=== PATIENT | female | born 1965 | race African-American/Black ===

== ENCOUNTER 2018-02-15 07:52 | Inpatient (IN) | payer OTHER ==
[2018-02-15] MEDS ORDERED: THROMBIN (BOVINE) 5,000 UNIT VIAL TP ONE ×3 (14:39→17:09)
[2018-02-15] MEDS ORDERED: fentaNYL CITRATE 250 MCG/5 ML VIAL ONE (14:49)
[2018-02-15] MEDS ORDERED: PROPOFOL 20 ML ONE ×23 (14:49→18:49)
[2018-02-15] MEDS ORDERED: MIDAZOLAM HCL 2 MG/2 ML SINGLE DOSE VIAL ONE (14:50)
[2018-02-15] MEDS ORDERED: SUCCINYLCHOLINE CHLORIDE 200 MG/10 ML VIAL ONE (14:50)
[2018-02-15] MEDS ORDERED: ONDANSETRON 4 MG/2 ML VIAL ONE ×2 (14:51→20:49)
[2018-02-15] MEDS ORDERED: TRANEXAMIC ACID 1000 MG/10 ML VIAL ONE ×2 (14:51→16:35)
[2018-02-15] MEDS ORDERED: DEXAMETHASONE SOD PHOSPHATE 4 MG/1 ML VIAL ONE (14:51)
[2018-02-15] MEDS ORDERED: ceFAZolin SODIUM 1 GM VIAL ONE ×2 (14:51→19:29)
[2018-02-15] MEDS ORDERED: VANCOMYCIN 1,000 MG VIAL (RESTRICTED TO ID ONLY) ONE (14:51)
[2018-02-15] MEDS ORDERED: LIDOCAINE HCL/PF 2% SDV 5ML VIAL ONE (14:51)
[2018-02-15] MEDS ORDERED: SODIUM CHLORIDE 0.9% P/F 10 ML VIAL IJ ONE (14:55)
[2018-02-15] MEDS ORDERED: VANCOMYCIN 1,000 MG VIAL (RESTRICTED TO ID ONLY) IVPB ONE (15:00)
[2018-02-15] MEDS ORDERED: HEPARIN NA (PORCINE) 5,000 UNITS/ML 1ML VIAL ONE (15:23)
[2018-02-15] MEDS ORDERED: ceFAZolin SODIUM 1 GM VIAL IVPB ONE (15:52)
[2018-02-15] MEDS ORDERED: ROCURONIUM BROMIDE 50 MG/5 ML VIAL ONE (16:49)
[2018-02-15] MEDS ORDERED: NEOSTIGMINE METHYLSULFATE 0.5 MG/ML - 10 ML MDV ONE (17:21)
[2018-02-15] MEDS ORDERED: GLYCOPYRROLATE 0.2 MG/1 ML VIAL ONE (17:21)
[2018-02-15] MEDS ORDERED: HYDROmorphone *PCA* 10MG/50ML DISP.SYRIN PCA ONE (20:09)
--- NOTE | 2018-02-15 20:12 | OP ---
Operative Note - Note: Operative Date: 02/15/18 Pre-Operative Diagnosis: Lumbar spinal stenosis Operation: 1. L1-S1 laminectomies. 2. L1-2, L2-L3 SPO. 3. L1-S1 PISF Post-Operative Diagnosis: Same as Pre-op Surgeon: Danilo Claire Napkin Machine Operator: Ja Claire Anesthesiologist/TRANSMISSION ENGINEER: Eric Wills Anesthesia: General Estimated Blood Loss (mls): 800 Drains & Tubes with Location: 1 x superficial HemoVac Blood Volume Replaced (mls): 250 (Cell Saver) Fluid Volume Replaced (mls): 3,300 (Crystalloid) Operative Report Dictated: Yes
--- NOTE | 2018-02-15 20:19 | PN ---
Progress Note (short form) - Note Progress Note: 52F s/p L1-S1 laminectomies, L1-2, L2-L3 SPO, L1-S1 PISF POD #0. -Pain control: SKIP MINER BLASTING; per anaesthesia team. -Admit to ICU post-op. -DVT PPx: - Mechanical ONLY (SCD's, DELGADO's). -Incentive spirometry. -PT/OT/Rehab, OOB. -WBAT B/L LE. -f/u drain output. -NPO until flatus. -d/c Tucker catheter when ambulating. -Kayla-Op Antibiotics: Vancomycin, Ancef x 24 hours. -Care per medical hospitalist team. -Discharge planning. -Will follow. Danilo Claire MD (Orthopaedic Surgery).
[2018-02-15] MEDS ORDERED: ONDANSETRON 4 MG/2 ML VIAL IVPUSH PRN (20:20)
[2018-02-15] MEDS ORDERED: LACTATED RINGERS SOLUTION 1,000 ML IV SCH (20:30)
[2018-02-15] MEDS ORDERED: DEXAMETHASONE SOD PHOSPHATE 4 MG/1 ML VIAL IVPUSH PRN (20:46)
[2018-02-15] MEDS ORDERED: PROMETHAZINE HCL 25 MG/1 ML VIAL IVPB PRN (20:46)
[2018-02-15] MEDS: HYDROmorphone *PCA* 10MG/50ML DISP.SYRIN PCA SCH ×2 (21:13→23:39)
[2018-02-15] MEDS: ACETAMINOPHEN 1000 MG/100 ML VIAL (NON FORMULARY) IVPB SCH (21:27)
--- NOTE | 2018-02-15 21:39 | CONSULT ---
Consult Consult Specialty:: Pulm/CCM Reason for Consultation:: Spinal stenosis s/p laminectomy - History of Present Illness Chief Complaint: Surgical site pain History of Present Illness: 52 ni with PMHx DMII, depression, lumbar spinal stenosis today is s/p L1-S1 laminectomies, L1-L2, L2-L3 SPO, L1-S1 PISF. In the OR EBL 800cc, cell saver 200cc, IVF, 3.3L, UOP 600cc. She is transferred to ICU for post-op management. In the ICU BP 101/67, HR 85 O2 sat 96% on NC O2 2L. Hemovac drain with small amt bloody drainage. BAXTER. C/o 07/14 pain. MEDIA INTERN dilaudid in place. - History Source History Provided By: Medical Record - Past Medical History ...LMP Comment: 2009 Musculoskeletal: Yes: Chronic low back pain Endocrine: Yes: Diabetes Mellitus - Alcohol/Substance Use Hx Alcohol Use: No - Smoking History Smoking history: Never smoked Home Medications - Allergies Allergies/Adverse Reactions: Allergies Allergy/AdvReac Type Severity Reaction Status Date / Time No Known Allergies Allergy Verified 02/12/18 19:13 - Home Medications Home Medications: Ambulatory Orders Gabapentin [Neurontin] 800 mg PO BID 02/12/18 Metformin HCl 500 mg PO DAILY 02/12/18 Oxycodone HCl/Acetaminophen [Percocet 10-325 mg Tablet] 1 each PO QID 02/12/18 Sertraline HCl [Zoloft] 100 mg PO DAILY 02/12/18 Tizanidine HCl 2 mg PO HS 02/12/18 Family Disease History - Family Disease History Family History: Unable to Obtain Review of Systems Unable to obtain ROS, reason: Pt lethargic Physical Exam Vital Signs: Vital Signs Temperature 97.8 F 02/15/18 08:59 Pulse Rate 83 02/15/18 08:59 Respiratory Rate 18 02/15/18 08:59 Blood Pressure 95/65 02/15/18 08:59 O2 Sat by Pulse Oximetry (%) 96 02/15/18 08:59 Constitutional: Yes: Anxious, Obese Eyes: Yes: Conjunctiva Clear, PERRL HENT: Yes: Atraumatic, Normocephalic Neck: Yes: Supple, Trachea Midline Cardiovascular: Yes: Regular Rate and Rhythm, S1, S2 Respiratory: Yes: Regular, CTA Bilaterally Gastrointestinal: Yes: Soft, Abdomen, Obese Renal/: Yes: [place] Present Musculoskeletal: Yes: Back Pain Extremities: Yes: WNL Edema: No Peripheral Pulses WNL: No Neurological: Yes: Oriented, Other (c/o surgical site pain) Psychiatric: Yes: Oriented Problem List - Problems (1) Spinal stenosis of lumbar region Code(s): M48.061 - SPINAL STENOSIS, LUMBAR REGION WITHOUT NEUROGENIC JUSTINE (2) S/P laminectomy Code(s): Z98.890 - OTHER SPECIFIED POSTPROCEDURAL STATES (3) Diabetes Code(s): E11.9 - TYPE 2 DIABETES MELLITUS WITHOUT COMPLICATIONS (4) Diabetes mellitus, type II Code(s): E11.9 - TYPE 2 DIABETES MELLITUS WITHOUT COMPLICATIONS (5) Obesity Code(s): E66.9 - OBESITY, UNSPECIFIED Assessment/Plan 52 ni with PMHx DMII lumbar spinal stenosis today is s/p L1-S1 laminectomies, L1-L2, L2-L3 SPO, L1-S1 PISF. She is transferred to ICU for post-op management. Plan: -Post op management as per surgery -Monitor drain output; monitor for bleeding, swelling -Activity as per surgery -Pain management with MEDIA INTERN Dilaudid -NPO for now -Cont post-op Ancef and vanco x24hrs -Monitor UOP -D/c [place] when ambulating -PT/OT -LEOBARDOs KELTON Jaramillo CC time 35mins
[2018-02-15] MEDS: TIZANIDINE HCL 2 MG TABLET PO SCH (22:46)
[2018-02-15] MEDS: GABAPENTIN 400 MG CAPSULE (FP) PO SCH (22:46)
[2018-02-16] MEDS: ceFAZolin 2 GRAM PREMIX BAG IVPB SCH ×3 (02:08→18:39)
[2018-02-16] MEDS ORDERED: VANCOMYCIN 1,000 MG in DEXTROSE 5%-WATER - 250 ML IVPB ONE (03:00)
[2018-02-16] MEDS ORDERED: HYDROmorphone *PCA* 10MG/50ML DISP.SYRIN PCA ONE (03:00)
[2018-02-16] MEDS: HYDROmorphone *PCA* 10MG/50ML DISP.SYRIN PCA SCH (03:02)
[2018-02-16] MEDS: ACETAMINOPHEN 1000 MG/100 ML VIAL (NON FORMULARY) IVPB SCH ×2 (05:08→16:00)
[2018-02-16 06:19] LABS: HEMATOCRIT 30.3 % (32.4-45.2); HEMOGLOBIN 10.1 GM/dL (10.7-15.3); MCH 27.4 pg (25.7-33.7); MCHC 33.5 g/dl (32.0-36.0); MEAN CELL VOLUME 81.7 fl (80-96); MEAN PLT VOLUME 8.8 fl (7.5-11.1); PLATELET COUNT 247 K/MM3 (134-434); RBC 3.71 M/mm3 (3.60-5.2); RDW 15.6 % (11.6-15.6); WHITE BLOOD COUNT 10.4 K/mm3 (4.0-10.0)
--- NOTE | 2018-02-16 06:22 | OP ---
DATE OF OPERATION: 02/15/2018 SURGEON: Danilo Claire MD WOOD CARVER: Ja Claire MD PREOPERATIVE DIAGNOSIS: Spinal stenosis, L2 to S1, with associated segmental instability and kyphosis, lumbar spine (flat back). POSTOPERATIVE DIAGNOSIS: Spinal stenosis, L2 to S1, with associated segmental instability and kyphosis, lumbar spine (flat back). OPERATION PERFORMED: 1. Laminectomy, L1 to S1. 2. Del Toro-Ruggiero osteotomy, L1-2 and L2-3. 3. Pedicle screw instrumentation, L1 to S1. 4. Posterolateral arthrodesis, L1 to S1. 5. Bone marrow aspirate concentrate with autologous bone graft. 6. Scar excision and complex wound closure, 40 cm. ANESTHESIA: General. ANTIBIOTICS GIVEN: Kefzol 2 g, vancomycin 1 g, Kefzol 1 g given at the end of the procedure. BLOOD LOSS: Approximately 800 mL; given back to the patient 250 mL of Cell Saver blood. PROCEDURE: Patient correctly identified, brought into the operating room, placed prone on Gelfoam rolls. The lumbar spine was prepped and window draped in the routine manner with Betadine scrub solution, wiped off with alcohol, DuraPrep applied. Imaging was available for intraoperative evaluation. Timeout was called. In the prone position, all bony points were appropriately padded including meticulous attention to the eyes and the brachial plexus as well as all bony points. The original scar was excised. This was a wedge excision of soft tissue, sent to the lab. The scar tissue was taken as a wedge right down to the fascial level. The fascia was opened at the level of the tips of the spinal processes from L1 to S1. A subperiosteal dissection performed throughout, right out to the tip of the transverse process, exposing the tips of the transverse process from L1 to S1 including the ala of the sacrum, packed with sponges for hemostasis, but the dissection was facilitated by meticulous hemostasis using unipolar and bipolar Bovie. The levels were correctly identified with a lateral fluoroscopic x-ray, the marker place being on L3. This proved to be a very difficult dissection because of the stuck down, adherent dura and very thickened bone bed due to the original misplacement of bone graft posteriorly directly onto the thecal sac, forming a thick layer of bone over this compressed , stenosed canal. The only way we could clear this was with removing the spinous process with Johanna quincy, followed by Leksell rongeurs, and 3.0, 4.0, 5.0, and 6.0 Kerrisons, particularly at L2-3 and L1-2. This gave excellent entry to the actual vertebral canal, exposing the dura completely, and then marching southwards, I needed to osteotomized the bone posteriorly centrally in order to achieve a complete thinning of the bone so that the Kerrisons could be utilized to undercut and relieve the stenosis. The lateral vertebral wall and superior facets were undercut by longitudinal osteotomies, splitting the pars interarticularis and the inferior facets. The bone was imploded inwards, the superior facets resected, and at that point, a complete freeing of the dura was noted. A small dural rent was noted, but the actual arachnoid was intact. This was covered with Surgicel and fibrin glue and remained completely sealed throughout. A Del Toro-Ruggiero was continued by freeing the bone completely laterally to encourage lordosis. This was at L1-2 and L2-3. The pedicles were identified using anatomic guidelines as well as lateral fluoroscopic x-ray. The pedicle screws were seated without any problems. Neuromonitoring testings revealed that all screws were well seated, well above 20 mA at each case except in the left L5 screw which was 17 mA. The rods were contoured to the screw heads, fixed solidly with appropriate cap device, and tightened with a torque wrench. Bone grafting was with autologous bone graft and 120 mL of marrow which had spread from the left posterior ilium through the same wound. This was spun down for the CD34 cells. The appropriate mixture was then mixed with the autologous bone and expanded with some allograft putty and packed into the intertransverse plane from L1 right down to S1, left and right-hand side. Throughout the procedure, the wounds were copiously lavaged. The retractors were released and utilized and released again every 15-20 minutes. The muscle mass was massaged gently to enhance the appropriate blood supply to the muscle mass laterally. It must be noted that the erector spinae distally was noticeably calcified and hard in terms of bone. CLOSURE: In layers, muscle 1 Vicryl, fascia 1 Vicryl, subcutaneous 1 and 2-0 Vicryl, skin eun. DRAINAGE: 1/8 inch Hemovac x1. OVERALL COMMENT: Extremely difficult case but went well. No complications. Patient will be mobilized within her range of comfort. A 1/8 inch Hemovac drain was placed superficially in the subcutaneous plane. A bulky spinous dressing applied. MD CHARLIE Dela Cruz/[id number] MTDD
[2018-02-16 06:55] LABS: ANION GAP 7 (8-16); BLOOD UREA NITROGEN 7 mg/dL (7-18); CALCIUM 8.3 mg/dL (8.5-10.1); CHLORIDE 107 mmol/L (98-107); CO2 28 mmol/L (21-32); CREATININE 0.7 mg/dL (0.55-1.02); GLUCOSE,RANDOM 139 mg/dL (74-106); POTASSIUM 4.4 mmol/L (3.5-5.1); SODIUM 142 mmol/L (136-145)
[2018-02-16] MEDS ORDERED: SERTRALINE HCL 50 MG TABLET (FP) PO SCH (10:00)
[2018-02-16] MEDS: GABAPENTIN 400 MG CAPSULE (FP) PO SCH ×2 (10:18→21:09)
--- NOTE | 2018-02-16 11:52 | PN ---
Teaching Attending Note Name of Resident: Марина Bradford ATTENDING PHYSICIAN STATEMENT I saw and evaluated the patient. I reviewed the resident's note and discussed the case with the resident. I agree with the resident's findings and plan as documented. SUBJECTIVE: Pt seen and examined in the ICU. Pain currently controlled with current regimen. Ambulated this AM around unit with walker and assistance. Passed flatus. OBJECTIVE: Last Vital Signs Temp Pulse Resp BP Pulse Ox 98.4 F 104 H 20 110/34 95 02/16/18 10:00 02/16/18 10:00 02/16/18 10:00 02/16/18 10:00 02/16/18 08:19 Intake & Output 02/13/18 02/14/18 02/15/18 02/16/18 23:59 23:59 23:59 23:59 Intake Total 4115 1300 Output Total 1600 1035 Balance 2515 265 Weight 87.146 kg Gen: NAD at rest Heart: tachycardic, regular Lung: decreased breath sounds at the bases Abd: soft, nontender Ext: no edema CBC, BMP 02/16/18 05:15 02/16/18 05:15 Active Medications Acetaminophen (Ofirmev Injection -) 1,000 mg IVPB Q8H [facility] Stop: 02/16/18 12:31 Last Admin: 02/16/18 05:08 Dose: 1,000 mg Cefazolin Sodium/Dextrose (Ancef 2 Gm Premixed Ivpb -) 2 gm IVPB Q8H [facility] Stop: 02/17/18 01:59 Last Admin: 02/16/18 10:19 Dose: 2 gm Dexamethasone Sodium Phosphate (Decadron Injection -) 4 mg IVPUSH ONCE PRN PRN Reason: NAUSEA AND/OR VOMITING Diphenhydramine HCl (Benadryl Injection -) 12.5 mg IVPUSH ONCE PRN PRN Reason: FOR ITCHING Fentanyl (Sublimaze Injection -) 50 mcg IVPUSH [id number] PRN PRN Reason: PAIN-PACU ORDER X 4 DOSES ONLY Last Admin: 02/15/18 20:55 Dose: 50 mcg Gabapentin (Neurontin -) 800 mg PO BID [facility] Last Admin: 02/16/18 10:18 Dose: 800 mg Hydromorphone HCl (Dilaudid Staffing Branch Manager -) 0 mg AADC PLANS STAFF OFFICER AADC PLANS STAFF OFFICER [facility] PRN Reason: Protocol Stop: 02/22/18 20:46 Last Admin: 02/16/18 03:02 Dose: 10 mg Lactated Ringer's (Lactated Ringers Solution) 1,000 mls @ 100 mls/hr IV ASDIR [facility] Last Admin: 02/15/18 20:45 Dose: 115 mls Ondansetron HCl (Zofran Injection) 4 mg IVPUSH Q6H PRN PRN Reason: NAUSEA AND/OR VOMITING Last Admin: 02/15/18 21:10 Dose: 4 mg Promethazine HCl (Phenergan Injection -) 12.5 mg IVPB Q6H PRN PRN Reason: NAUSEA AND/OR VOMITING Sertraline HCl (Zoloft -) 100 mg PO DAILY [facility] Last Admin: 02/16/18 10:18 Dose: 100 mg Tizanidine HCl (Tizanidine Hcl) 2 mg PO HS [facility] Last Admin: 02/15/18 22:46 Dose: Not Given ASSESSMENT AND PLAN: Lumbar Spinal Stenosis s/p L1-S1 Laminectomies/Posterior Fusions DM - pain control - incentive spirometry - bowel regimen - d/c [place] - PO/activity per surgery - mechanical DVT prophylaxis - can transfer to floor, discuss with surgery
[2018-02-16] MEDS ORDERED: FUROSEMIDE 40 MG/4 ML INJECTABLE VIAL IVPUSH ONE (12:03)
--- NOTE | 2018-02-16 12:34 | PN ---
Physical Exam: SUBJECTIVE: Patient seen and examined. Post Op Day 1 Says she is passing gas, no BM. Patient complains of back pain at the surgical site but not other complaints. She says pain is controlled because of her medications. denies sob, dizziness, chest pain, nausea, vomiting, dysuria. OBJECTIVE: Vital Signs Period Temp Pulse Resp BP Sys/Zacarias Pulse Ox Last 24 Hr 97.9 F-99.5 F 64-104 10-21 94-154/34-86 95-99 GENERAL: The patient is awake, alert, and fully oriented, in no acute distress. EYES: PERRL, extraocular movements intact, sclera anicteric, conjunctiva clear. ENT: oropharynx clear without exudates, moist mucous membranes. NECK: supple. LUNGS: Breath sounds equal, clear to auscultation bilaterally HEART: tachy, regular rhythm, S1, S2 without murmur, rub or gallop. ABDOMEN: Soft, nontender, nondistended, normoactive bowel sounds EXTREMITIES: 2+ pulses, warm, well-perfused, no edema. NEUROLOGICAL: Cranial nerves II through XII grossly intact. Normal speech, normal gait. SKIN: Warm, dry, normal turgor, no rashes or lesions noted Back: surgical dressing in place. Normal range of motion. tenderness around surgical site. Laboratory Results - last 24 hr 02/16/18 02/16/18 02/16/18 05:15 05:15 05:15 WBC 10.4 H RBC 3.71 Hgb 10.1 L Hct 30.3 L MCV 81.7 MCH 27.4 MCHC 33.5 RDW 15.6 Plt Count 247 MPV 8.8 Sodium 142 Potassium 4.4 Chloride 107 Carbon Dioxide 28 Anion Gap 7 L BUN 7 Creatinine 0.7 Random Glucose 139 H Calcium 8.3 L Serum , Qual Negative Active Medications Generic Name Dose Route Start Last Admin Trade Name Freq PRN Reason Stop Dose Admin Acetaminophen 1,000 mg 02/15/18 20:30 02/16/18 05:08 Ofirmev Injection - IVPB 02/16/18 12:31 1,000 mg Q8H [facility] Administration Cefazolin Sodium/Dextrose 2 gm 02/16/18 02:00 02/16/18 10:19 Ancef 2 Gm Premixed Ivpb - IVPB 02/17/18 01:59 2 gm Q8H [facility] Administration Dexamethasone Sodium Phosphate 4 mg 02/15/18 20:46 Decadron Injection - IVPUSH ONCE PRN NAUSEA AND/OR VOMITING Diphenhydramine HCl 12.5 mg 02/15/18 20:46 Benadryl Injection - IVPUSH ONCE PRN FOR ITCHING Fentanyl 50 mcg 02/15/18 20:46 02/15/18 20:55 Sublimaze Injection - IVPUSH 50 mcg [id number] PRN Administration PAIN-PACU ORDER X 4 DOSES ONLY Gabapentin 800 mg 02/15/18 22:00 02/16/18 10:18 Neurontin - PO 800 mg BID [facility] Administration Hydromorphone HCl 0 mg 02/15/18 21:00 02/16/18 03:02 Dilaudid Demand Generator Manager - ICE PLANT OPERATOR 02/22/18 20:46 10 mg ICE PLANT OPERATOR [facility] Administration Protocol Lactated Ringer's 1,000 mls @ 100 mls/hr 02/15/18 20:30 02/15/18 20:45 Lactated Ringers Solution IV 115 mls ASDIR [facility] Administration Ondansetron HCl 4 mg 02/15/18 20:20 02/15/18 21:10 Zofran Injection IVPUSH 4 mg Q6H PRN Administration NAUSEA AND/OR VOMITING Promethazine HCl 12.5 mg 02/15/18 20:46 Phenergan Injection - IVPB Q6H PRN NAUSEA AND/OR VOMITING Sertraline HCl 100 mg 02/16/18 10:00 02/16/18 10:18 Zoloft - PO 100 mg DAILY [facility] Administration Tizanidine HCl 2 mg 02/15/18 22:00 02/15/18 22:46 Tizanidine Hcl PO Not Given HS [facility] ASSESSMENT/PLAN: 52 yo F with a PMHx of DM, depression, lumbar spinal stenosis, s/p Laminectomies /Posterior Fusion on 02/15. #S/p L1-S1 Laminectomies/Posterior Fusions 02/15 -post op day 1 -Pain control with ICE PLANT OPERATOR dilaudid -Clear liquid meds -PT -Urine output -IV abx day 2: Cefazolin 2gm q8h -FU orhto reccs #DM -BGM -Insulin sliding scale #FEN -LR 100ml/hour -WNL -Clear liquid transfer to med-surge Visit type - Emergency Visit Emergency Visit: Yes ED Registration Date: 02/15/18 Care time: The patient presented to the Emergency Department on the above date and was hospitalized for further evaluation of their emergent condition. - New Patient This patient is new to me today: Yes Date on this admission: 02/16/18 - Critical Care Critical Care patient: Yes Total Critical Care Time (in minutes): 40 Critical Care Statement: The care of this patient involved high complexity decision making to prevent further life threatening deterioration of the patient 's condition and/or to evaluate & treat vital organ system(s) failure or risk of failure.
--- NOTE | 2018-02-16 14:50 | PN ---
Progress Note, Physician Chief Complaint: Pt. using BRAKESHOE REPAIRER for pain control, no anesthesia complaints. - Current Medication List Current Medications: Active Medications Cefazolin Sodium/Dextrose (Ancef 2 Gm Premixed Ivpb -) 2 gm IVPB Q8H [facility] Stop: 02/17/18 01:59 Last Admin: 02/16/18 10:19 Dose: 2 gm Dexamethasone Sodium Phosphate (Decadron Injection -) 4 mg IVPUSH ONCE PRN PRN Reason: NAUSEA AND/OR VOMITING Diphenhydramine HCl (Benadryl Injection -) 12.5 mg IVPUSH ONCE PRN PRN Reason: FOR ITCHING Fentanyl (Sublimaze Injection -) 50 mcg IVPUSH [id number] PRN PRN Reason: PAIN-PACU ORDER X 4 DOSES ONLY Last Admin: 02/15/18 20:55 Dose: 50 mcg Gabapentin (Neurontin -) 800 mg PO BID [facility] Last Admin: 02/16/18 10:18 Dose: 800 mg Hydromorphone HCl (Dilaudid Business Support Specialist -) 0 mg BRAKESHOE REPAIRER BRAKESHOE REPAIRER [facility] PRN Reason: Protocol Stop: 02/22/18 20:46 Last Admin: 02/16/18 03:02 Dose: 10 mg Lactated Ringer's (Lactated Ringers Solution) 1,000 mls @ 100 mls/hr IV ASDIR [facility] Last Admin: 02/15/18 20:45 Dose: 115 mls Ondansetron HCl (Zofran Injection) 4 mg IVPUSH Q6H PRN PRN Reason: NAUSEA AND/OR VOMITING Last Admin: 02/15/18 21:10 Dose: 4 mg Promethazine HCl (Phenergan Injection -) 12.5 mg IVPB Q6H PRN PRN Reason: NAUSEA AND/OR VOMITING Sertraline HCl (Zoloft -) 100 mg PO DAILY [facility] Last Admin: 02/16/18 10:18 Dose: 100 mg Tizanidine HCl (Tizanidine Hcl) 2 mg PO HS [facility] Last Admin: 02/15/18 22:46 Dose: Not Given - Objective Vital Signs: Vital Signs Temperature 98.4 F 02/16/18 10:00 Pulse Rate 82 02/16/18 12:00 Respiratory Rate 20 02/16/18 12:00 Blood Pressure 103/55 02/16/18 12:00 O2 Sat by Pulse Oximetry (%) 95 02/16/18 08:19 Constitutional: Yes: Well Nourished, No Distress, Calm Neurological: Yes: WNL, Alert, Oriented Labs: CBC, BMP 02/16/18 05:15 02/16/18 05:15 Assessment/Plan POD#1 s/p L1-S1 Lumbar posterior interbody fusion. Doing well. Continue BRAKESHOE REPAIRER.
[2018-02-16] MEDS: oxyCODONE HCL 5 MG TABLET PO PRN (16:11)
[2018-02-16] MEDS ORDERED: oxyCODONE HCL 10 MG SUSTAINED ACTING TABLET PO SCH ×2 (16:22→22:00)
[2018-02-16] MEDS: oxyCODONE HCL 10 MG SUSTAINED ACTING TABLET PO SCH ×2 (16:32→21:09)
[2018-02-16] MEDS ORDERED: PT OWN MED DRAWER 7, Y5N ONE (21:04)
[2018-02-16] MEDS ORDERED: SERTRALINE HCL 50 MG TABLET (FP) PO ONE (21:08)
[2018-02-16] MEDS: DOCUSATE SODIUM 100 MG CAPSULE (FP) PO SCH (21:09)
[2018-02-16] MEDS: TIZANIDINE HCL 2 MG TABLET PO SCH (21:10)
[2018-02-17] MEDS: oxyCODONE HCL 5 MG TABLET PO PRN ×5 (00:54→20:57)
[2018-02-17 06:07] LABS: HEMATOCRIT 28.8 % (32.4-45.2); HEMOGLOBIN 9.5 GM/dL (10.7-15.3); MCHC 33.1 g/dl (32.0-36.0); MEAN CELL VOLUME 81.6 fl (80-96); MEAN PLT VOLUME 8.2 fl (7.5-11.1); PLATELET COUNT 217 K/MM3 (134-434); RBC 3.53 M/mm3 (3.60-5.2); RDW 15.5 % (11.6-15.6); WHITE BLOOD COUNT 10.4 K/mm3 (4.0-10.0)
[2018-02-17 06:49] LABS: CHLORIDE 107 mmol/L (98-107); POTASSIUM 3.8 mmol/L (3.5-5.1); SODIUM 143 mmol/L (136-145)
[2018-02-17 06:58] LABS: ALBUMIN 3.1 g/dl (3.4-5.0); ALK PHOS 86 U/L (45-117); ANION GAP 7 (8-16); BILIRUBIN,TOTAL 0.6 mg/dL (0.2-1.0); BLOOD UREA NITROGEN 5 mg/dL (7-18); CALCIUM 8.2 mg/dL (8.5-10.1); CO2 29 mmol/L (21-32); CREATININE 0.7 mg/dL (0.55-1.02); GLUCOSE,RANDOM 101 mg/dL (74-106); MAGNESIUM 2.1 mg/dL (1.8-2.4); PHOSPHOROUS 2.7 mg/dL (2.5-4.9); SGOT/AST 31 U/L (15-37); SGPT/ALT 14 U/L (12-78); TOT PROT 6.1 g/dl (6.4-8.2)
--- NOTE | 2018-02-17 10:07 | PN ---
Progress Note, Physician Chief Complaint: 52 y.o. s/p L1-S1 interbody fusion on post-op SIGNAL REPAIRER. She c/o mid back pain this morning. - Current Medication List Current Medications: Active Medications Dexamethasone Sodium Phosphate (Decadron Injection -) 4 mg IVPUSH ONCE PRN PRN Reason: NAUSEA AND/OR VOMITING Diphenhydramine HCl (Benadryl Injection -) 12.5 mg IVPUSH ONCE PRN PRN Reason: FOR ITCHING Docusate Sodium (Colace -) 100 mg PO BID [facility] Last Admin: 02/16/18 21:09 Dose: 100 mg Fentanyl (Sublimaze Injection -) 50 mcg IVPUSH [id number] PRN PRN Reason: PAIN-PACU ORDER X 4 DOSES ONLY Last Admin: 02/15/18 20:55 Dose: 50 mcg Gabapentin (Neurontin -) 800 mg PO BID [facility] Last Admin: 02/16/18 21:09 Dose: 800 mg Ondansetron HCl (Zofran Injection) 4 mg IVPUSH Q6H PRN PRN Reason: NAUSEA AND/OR VOMITING Last Admin: 02/15/18 21:10 Dose: 4 mg Oxycodone HCl (Roxicodone -) 5 mg PO Q3H PRN PRN Reason: PAIN LEVEL 4 - 6 Last Admin: 02/17/18 05:31 Dose: 5 mg Oxycodone HCl (Roxicodone -) 10 mg PO Q3H PRN PRN Reason: PAIN LEVEL 7 - 10 Last Admin: 02/17/18 00:54 Dose: 10 mg Oxycodone HCl (Oxycontin -) 10 mg PO BID [facility] Last Admin: 02/16/18 21:09 Dose: 10 mg Promethazine HCl (Phenergan Injection -) 12.5 mg IVPB Q6H PRN PRN Reason: NAUSEA AND/OR VOMITING Sertraline HCl (Zoloft -) 100 mg PO BID [facility] Tizanidine HCl (Tizanidine Hcl) 2 mg PO HS [facility] Last Admin: 02/16/18 21:10 Dose: 2 mg - Objective Vital Signs: Vital Signs Temperature 98.5 F 02/17/18 02:00 Pulse Rate 92 H 02/17/18 08:00 Respiratory Rate 20 02/17/18 08:00 Blood Pressure 94/50 02/17/18 08:00 O2 Sat by Pulse Oximetry (%) 95 02/16/18 21:00 Labs: CBC, BMP 02/17/18 05:55 02/17/18 05:55 Assessment/Plan 52 y.o. woman with stable post-operative course transitioned to PO analgesia, currently being transferred out of ICU. Continue PO pain meds as ordered with PRN dosing also available in addition to scheduled. Encouraged incentive spirometry.
[2018-02-17] MEDS: DOCUSATE SODIUM 100 MG CAPSULE (FP) PO SCH ×2 (10:11→21:04)
[2018-02-17] MEDS: oxyCODONE HCL 10 MG SUSTAINED ACTING TABLET PO SCH ×2 (10:14→21:08)
[2018-02-17] MEDS: SERTRALINE HCL 50 MG TABLET (FP) PO SCH ×2 (10:14→21:05)
[2018-02-17] MEDS: GABAPENTIN 400 MG CAPSULE (FP) PO SCH ×2 (10:19→21:04)
[2018-02-17] MEDS: INSULIN SLIDING SCALE (NOVOLOG) 1 VIAL SQ SCH ×2 (11:25→16:57)
--- NOTE | 2018-02-17 11:45 | PN ---
Physical Exam: SUBJECTIVE: Called to round on patient today, 02/17/2018, on postoperative day 2, at the request of Dr. Claire Patient seen and examined at bedside. Complains of pain to the incision along the back upset she can not OBJECTIVE: Vital Signs Period Temp Pulse Resp BP Sys/Zacarias Pulse Ox Last 24 Hr 98.1 F-100.1 F 82-104 14-22 93-124/42-98 95 GENERAL: The patient is awake, alert, and fully oriented, in no acute distress. HEAD: Normal with no signs of trauma. EYES: PERRL, extraocular movements intact ENT: moist mucous membranes. NECK: Trachea midline, supple. LUNGS: Breath sounds equal, clear to auscultation bilaterally, no wheezes, no crackles, no accessory muscle use. HEART: Regular rate and rhythm, S1, S2 without murmur, rub or gallop. ABDOMEN: Soft, nontender, nondistended, normoactive bowel sounds EXTREMITIES: warm, well-perfused, no edema. NEUROLOGICAL: Cranial nerves II through XII grossly intact. Normal speech, gait not MSK: back with dressing C/D/I. Hemovac drain with seroosangenous drainage observed. Global muscle strength 5/5. PSYCH: Normal mood, normal affect. SKIN: Warm, dry Laboratory Results - last 24 hr 02/17/18 02/17/18 02/17/18 05:55 05:55 11:23 WBC 10.4 H RBC 3.53 L Hgb 9.5 L Hct 28.8 L MCV 81.6 MCH 27.0 MCHC 33.1 RDW 15.5 Plt Count 217 MPV 8.2 Sodium 143 Potassium 3.8 Chloride 107 Carbon Dioxide 29 Anion Gap 7 L BUN 5 L Creatinine 0.7 Creat Clearance w eGFR > 60 POC Glucometer 109 Random Glucose 101 Calcium 8.2 L Phosphorus 2.7 Magnesium 2.1 Total Bilirubin 0.6 AST 31 ALT 14 Alkaline Phosphatase 86 Total Protein 6.1 L Albumin 3.1 L Active Medications Generic Name Dose Route Start Last Admin Trade Name Freq PRN Reason Stop Dose Admin Dexamethasone Sodium Phosphate 4 mg 02/15/18 20:46 Decadron Injection - IVPUSH ONCE PRN NAUSEA AND/OR VOMITING Diphenhydramine HCl 12.5 mg 02/15/18 20:46 Benadryl Injection - IVPUSH ONCE PRN FOR ITCHING Docusate Sodium 100 mg 02/16/18 22:00 02/17/18 10:11 Colace - PO 100 mg BID [facility] Administration Fentanyl 50 mcg 02/15/18 20:46 02/15/18 20:55 Sublimaze Injection - IVPUSH 50 mcg [id number] PRN Administration PAIN-PACU ORDER X 4 DOSES ONLY Gabapentin 800 mg 02/15/18 22:00 02/17/18 10:19 Neurontin - PO Not Given BID [facility] Insulin Aspart 1 vial 02/17/18 11:00 02/17/18 11:25 Novolog Vial Sliding Scale - SQ Not Given TIDAC [facility] Protocol Ondansetron HCl 4 mg 02/15/18 20:20 02/15/18 21:10 Zofran Injection IVPUSH 4 mg Q6H PRN Administration NAUSEA AND/OR VOMITING Oxycodone HCl 5 mg 02/16/18 15:55 02/17/18 05:31 Roxicodone - PO 5 mg Q3H PRN Administration PAIN LEVEL 4 - 6 Oxycodone HCl 10 mg 02/16/18 15:55 02/17/18 00:54 Roxicodone - PO 10 mg Q3H PRN Administration PAIN LEVEL 7 - 10 Oxycodone HCl 10 mg 02/16/18 16:30 02/17/18 10:14 Oxycontin - PO 10 mg BID [facility] Administration Promethazine HCl 12.5 mg 02/15/18 20:46 Phenergan Injection - IVPB Q6H PRN NAUSEA AND/OR VOMITING Sertraline HCl 100 mg 02/17/18 09:00 02/17/18 10:14 Zoloft - PO 100 mg BID [facility] Administration Tizanidine HCl 2 mg 02/15/18 22:00 02/16/18 21:10 Tizanidine Hcl PO 2 mg HS [facility] Administration ASSESSMENT/PLAN: 52F with PMH of DM, Lumbar spinal stenosis, and depression s/p L1-S1 laminectomies, L1-L2, L2-L3 SPO, L1-S1 PISF. Patient was was initially transferred to the ICU for post-op monitoring and is now on the surgical floors. Patient has had an uneventful post-operative recovery course. Lumbar stenosis s/p L1-S1 laminectomies, L1-L2, L2-L3 SPO, L1-S1 PISF Pain control-now on PO medications Percocet Physical therapy Surgical PA to remove drain today Advance diet as tolerated Trend CBC due to large volume blood loss in OR aniemetics on bowel regimen continue gabapentin continue Tizanidine DM: Blood sugar well controlled at this time fingersticks for BGM ACHS ISS TIDAC Depression: Continue Zoloft FEN: No IVF no electrolyte issues Advance diet as tolerated per surgery-PA to speak to Dr. Claire about regular diet Case discussed with attending Dr. Escobedo Visit type - Emergency Visit Emergency Visit: Yes ED Registration Date: 02/15/18 Care time: The patient presented to the Emergency Department on the above date and was hospitalized for further evaluation of their emergent condition. - New Patient This patient is new to me today: Yes Date on this admission: 02/17/18 - Critical Care Critical Care patient: No - Discharge Referral Referred to [facility] Med P.C.: No
[2018-02-17] MEDS ORDERED: ONDANSETRON 4 MG/2 ML VIAL IVPUSH PRN (12:23)
[2018-02-17] MEDS ORDERED: PROMETHAZINE HCL 25 MG/1 ML VIAL IVPB PRN (12:23)
[2018-02-17] MEDS ORDERED: DEXAMETHASONE SOD PHOSPHATE 4 MG/1 ML VIAL IVPUSH ONE (12:23)
[2018-02-17] MEDS ORDERED: DEXAMETHASONE SOD PHOSPHATE 4 MG/1 ML VIAL IVPUSH PRN (12:23)
[2018-02-17 12:42] VITALS: BMI 32.9
--- NOTE | 2018-02-17 12:59 | PROC ---
Procedure Note Procedure: J/P drain pulled from mid thoracic just superior to incision, with tip fully intact, the drain site was clean and dry and a pressure dressing was applied. The patient tolerated the procedure well. Her incision at the midline is c/d/i with eun insitu no evidence tracking erythema, collection or d/c. surrounding tissue intact. Clean dressing applied
--- NOTE | 2018-02-17 14:10 | PN ---
Teaching Attending Note Name of Resident: Billy Villalobos ATTENDING PHYSICIAN STATEMENT I saw and evaluated the patient. I reviewed the resident's note and discussed the case with the resident. I agree with the resident's findings and plan as documented. Requested by Dr Claire to assume care starting today. SUBJECTIVE:c/o lower back pain since drain pulled a little while go. pain has been controlled with percocet. states sugars have been controlled at home. her BP is always on the low side "80/60's?". denies Cp, SOB, fever, chills, N/V/C/D OBJECTIVE: Last Vital Signs Temp Pulse Resp BP Pulse Ox 98.5 F 92 H 20 94/50 95 02/17/18 02:00 02/17/18 08:00 02/17/18 08:00 02/17/18 08:00 02/16/18 21:00 General mild distress due to pain CV S1 S2 tachy Lungs CTA B/L no wheezing/rales/rhonchi Abdomen soft NT/ND Extremities no pedal edema back bandage intact, requested not to be touched ASSESSMENT AND PLAN: 52yo F wtih PMH DM and depression and spinal stenosis who came for scheduled laminectomy 1. Spinal stenosis- S/p L1-S1 laminetomy, L1-L2, L2-L3 SPO, L1-S1 PISF 02/15. had hemovac drain in place which was pulled earlier today. pain controlled with percocet. ws just medicated for current pain. will assess to ensure pain improves. ambulates 250ft with PT. further management per neurosurgery 2. hypotension- repeated now is 117/76. may be increased due to current pain. states she runs low. will monitor closely 3. Normocytic anemia- likely due to surgery. EBV loss 800cc. received cell saver 250cc. will repeat with irons studies. no indication for blood transfusion 4. DM- controlled. will monitor as diet is advanced. iss. will discharge on home medications 5. DVT ppx- EAM. recent neurosurgery would hold pharmacologic anticoagulation 6. discharge planning tomorrow if BP and Hgb remain stable
--- NOTE | 2018-02-17 15:50 | PATH ---
Surgical Pathology Report Patient Name: FRANK MORALES Med. Rec. #: [id number] /Age/Gender: 1965 (Age: 52) / F Account: [id number] Location: [facility] MED/SURG Taken: 02/15/2018 Received: 02/16/2018 Reported: 02/17/2018 Physicians: Danilo Claire M.D. Specimen(s) Received TISSUE OF KELOID SCAR Clinical History Spinal stenosis Final Diagnosis KELOID, BACK TISSUE, EXCISION: SEGMENT OF SKIN WITH HYPERTROPHIC SCAR AND CHRONIC INFLAMMATION IN THE DERMIS. Electronically Signed Jj Stephen M.D. Gross Description Received in formalin labeled "keloid back tissue," is an 18.0 x 2.2 cm portion of skin with underlying soft tissue. The epidermal surface displays a central, linear scar. Sectioning reveals foci of fibrous tissue. Pet Feeder sections are submitted in one cassette. /02/16/2018 saudi/02/16/2018
[2018-02-17] MEDS: ACETAMINOPHEN 325 MG TABLET (FP) PO PRN (16:40)
[2018-02-17 19:50] LABS: URINE APPEARANCE CLEAR; URINE BILIRUBIN NEGATIVE (<2.0 mg/dL); URINE BLOOD NEGATIVE (NEGATIVE); URINE COLOR LTYELLOW; URINE GLUCOSE (UA) NEGATIVE (NEGATIVE); URINE KETONE NEGATIVE (NEGATIVE); URINE LEUK ESTERASE NEGATIVE (NEGATIVE); URINE NITRITE NEGATIVE (NEGATIVE); URINE PROTEIN NEGATIVE (NEGATIVE); URINE UROBILINOGEN NEGATIVE mg/dL (0.2-1.0)
[2018-02-17] MEDS ORDERED: PT OWN MED DRAWER 7, Y5N ONE (21:01)
[2018-02-17] MEDS: TIZANIDINE HCL 2 MG TABLET PO SCH (21:05)
[2018-02-18] MEDS: oxyCODONE HCL 5 MG TABLET PO PRN ×4 (01:47→18:41)
[2018-02-18] MEDS ORDERED: INSULIN (NOVOLOG) ASPART 100 UNITS/ML 10ML VIAL ONE (06:04)
[2018-02-18] MEDS: ACETAMINOPHEN 325 MG TABLET (FP) PO PRN ×3 (06:08→20:14)
[2018-02-18] MEDS: INSULIN SLIDING SCALE (NOVOLOG) 1 VIAL SQ SCH ×3 (06:11→18:22)
[2018-02-18 07:38] LABS: HEMATOCRIT 26.1 % (32.4-45.2); HEMOGLOBIN 8.5 GM/dL (10.7-15.3); MCH 26.4 pg (25.7-33.7); MCHC 32.5 g/dl (32.0-36.0); MEAN CELL VOLUME 81.4 fl (80-96); MEAN PLT VOLUME 8.5 fl (7.5-11.1); PLATELET COUNT 203 K/MM3 (134-434); RBC 3.21 M/mm3 (3.60-5.2); RDW 15.4 % (11.6-15.6); WHITE BLOOD COUNT 11.6 K/mm3 (4.0-10.0)
--- NOTE | 2018-02-18 07:45 | PN ---
Physical Exam: SUBJECTIVE: Patient seen and examined at bedside. Pt found to be crying upon entering room. Pt states she is upset and wants to go home. Pt denies pain except mild pain at the surgical site, which she states is improving. Pt had fever 102.1 around 6am today. No other events. OBJECTIVE: Vital Signs Period Temp Pulse Resp BP Sys/Zacarias Pulse Ox Last 24 Hr 98.3 F-102.1 F 89-103 18-20 94-118/50-60 94-98 GENERAL: The patient is awake, alert, and fully oriented. Pt visibly upset and crying HEAD: Normal with no signs of trauma. EYES:extraocular movements intact, sclera anicteric, conjunctiva clear. No ptosis. ENT: oropharynx clear without exudates, moist mucous membranes. NECK: Trachea midline, full range of motion, supple. LUNGS: Breath sounds equal, clear to auscultation bilaterally, no wheezes, no crackles, no accessory muscle use. HEART: Regular rate and rhythm, S1, S2 without murmur, rub or gallop. BACK: dressing cdi upper-thoracic ABDOMEN: Soft, nontender, nondistended, normoactive bowel sounds, no guarding, no rebound, no hepatosplenomegaly, no masses. EXTREMITIES: 2+ pulses, warm, well-perfused, no edema. NEUROLOGICAL: Cranial nerves II through XII grossly intact. Moves all extremities spontaneously. No focal sensory deficit. Normal speech, gait not observed. PSYCH: Normal mood, normal affect. SKIN: Warm, dry, normal turgor, no rashes or lesions noted Laboratory Results - last 24 hr 02/17/18 02/17/18 02/17/18 11:23 16:56 18:45 POC Glucometer 109 123 Urine Color Ltyellow Urine Appearance Clear Urine pH 6.0 Ur Specific [place] 1.009 Urine Protein Negative Urine Glucose (UA) Negative Urine Ketones Negative Urine Blood Negative Urine Nitrite Negative Urine Bilirubin Negative Urine Urobilinogen Negative Ur Leukocyte Esterase Negative 02/17/18 02/18/18 23:08 06:08 POC Glucometer 127 113 Urine Color Urine Appearance Urine pH Ur Specific [place] Urine Protein Urine Glucose (UA) Urine Ketones Urine Blood Urine Nitrite Urine Bilirubin Urine Urobilinogen Ur Leukocyte Esterase Active Medications Generic Name Dose Route Start Last Admin Trade Name Freq PRN Reason Stop Dose Admin Acetaminophen 650 mg 02/17/18 16:34 02/18/18 06:08 Tylenol - PO 650 mg Q6H PRN Administration FEVER Dexamethasone Sodium Phosphate 4 mg 02/17/18 12:23 Decadron Injection - IVPUSH ONCE PRN NAUSEA AND/OR VOMITING Diphenhydramine HCl 12.5 mg 02/17/18 12:23 Benadryl Injection - IVPUSH ONCE PRN FOR ITCHING Docusate Sodium 100 mg 02/16/18 22:00 02/17/18 21:04 Colace - PO 100 mg BID [facility] Administration Fentanyl 50 mcg 02/17/18 12:23 Sublimaze Injection - IVPUSH [id number] PRN PAIN-PACU ORDER X 4 DOSES ONLY Gabapentin 800 mg 02/17/18 22:00 02/17/18 21:04 Neurontin - PO 800 mg BID [facility] Administration Insulin Aspart 1 vial 02/17/18 11:00 02/18/18 06:11 Novolog Vial Sliding Scale - SQ Not Given TIDAC [facility] Protocol Ondansetron HCl 4 mg 02/17/18 12:23 Zofran Injection IVPUSH Q6H PRN NAUSEA AND/OR VOMITING Oxycodone HCl 5 mg 02/16/18 15:55 02/17/18 05:31 Roxicodone - PO 5 mg Q3H PRN Administration PAIN LEVEL 4 - 6 Oxycodone HCl 10 mg 02/16/18 15:55 02/18/18 05:21 Roxicodone - PO 10 mg Q3H PRN Administration PAIN LEVEL 7 - 10 Oxycodone HCl 10 mg 02/16/18 16:30 02/17/18 21:08 Oxycontin - PO Not Given BID [facility] Promethazine HCl 12.5 mg 02/17/18 12:23 Phenergan Injection - IVPB Q6H PRN NAUSEA AND/OR VOMITING Sertraline HCl 100 mg 02/17/18 09:00 02/17/18 21:05 Zoloft - PO 100 mg BID [facility] Administration Tizanidine HCl 2 mg 02/17/18 22:00 02/17/18 21:05 Tizanidine Hcl PO 2 mg HS [facility] Administration ASSESSMENT/PLAN: 52F with PMH of DM, Lumbar spinal stenosis, and depression s/p L1-S1 laminectomies, L1-L2, L2-L3 SPO, L1-S1 PISF. Patient was was initially transferred to the ICU for post-op monitoring and is now on the surgical floors. #Post op fever -POD 3 -febrile this morning -CXR done and neg for acute disease -BCx pending #Lumbar stenosis s/p L1-S1 laminectomies, L1-L2, L2-L3 SPO, L1-S1 PISF -POD 3 -Pain control-now on PO medications Percocet -drain removed -Advance diet as tolerated -Trend CBC due to large volume blood loss in OR: last Hb 9.5 normocytic -phenergan -zofran -Decadron -Benadryl -Fentanyl PRN -Oxycontin -continue gabapentin -continue Tizanidine -Physical therapy #DM -Blood sugar well controlled at this time -DM diet -BGM ACHS -ISS TIDAC #Depression -Zoloft -Tizanidine #FEN -No IVF -lytes wnl -Advance diet as tolerated per surgery-PA to speak to Dr. Claire about regular diet #Dispo -Transferred to med-surg for spine surgery recovery Adalberto Simental MD PGY-1 IM Visit type - Emergency Visit Emergency Visit: No - New Patient This patient is new to me today: No - Critical Care Critical Care patient: No - Discharge Referral Referred to [facility] Med P.C.: No
[2018-02-18] MEDS ORDERED: PT OWN MED DRAWER 7, Y5N ONE (09:10)
[2018-02-18] MEDS: oxyCODONE HCL 10 MG SUSTAINED ACTING TABLET PO SCH ×2 (09:12→22:01)
[2018-02-18] MEDS: GABAPENTIN 400 MG CAPSULE (FP) PO SCH ×2 (09:12→22:01)
[2018-02-18] MEDS: SERTRALINE HCL 50 MG TABLET (FP) PO SCH ×2 (09:13→22:02)
[2018-02-18] MEDS: DOCUSATE SODIUM 100 MG CAPSULE (FP) PO SCH ×2 (09:13→22:01)
--- NOTE | 2018-02-18 11:20 | DS ---
Physical Exam: SUBJECTIVE: Patient seen and examined OBJECTIVE: Vital Signs Period Temp Pulse Resp BP Sys/Zacarias Pulse Ox Last 24 Hr 98.3 F-102.1 F 89-103 18-20 97-118/53-60 94-98 PHYSICAL EXAM GENERAL: The patient is awake, alert, and fully oriented, in no acute distress. HEAD: Normal with no signs of trauma. EYES: PERRL, extraocular movements intact, sclera anicteric, conjunctiva clear. ENT: Ears normal, nares patent, oropharynx clear without exudates, moist mucous membranes. NECK: Trachea midline, full range of motion, supple. LUNGS: Breath sounds equal, clear to auscultation bilaterally, no wheezes, no crackles, no accessory muscle use. HEART: Regular rate and rhythm, S1, S2 without murmur, rub or gallop. ABDOMEN: Soft, nontender, nondistended, normoactive bowel sounds, no guarding, no rebound, no hepatosplenomegaly, no masses. EXTREMITIES: 2+ pulses, warm, well-perfused, no edema. NEUROLOGICAL: Cranial nerves II through XII grossly intact. Normal speech, gait not observed. PSYCH: Normal mood, normal affect. SKIN: Warm, dry, normal turgor, no rashes or lesions noted. LABS Laboratory Results - last 24 hr 02/17/18 02/17/18 02/17/18 11:23 16:56 18:45 WBC RBC Hgb Hct MCV MCH MCHC RDW Plt Count MPV POC Glucometer 109 123 Ferritin Urine Color Ltyellow Urine Appearance Clear Urine pH 6.0 Ur Specific [place] 1.009 Urine Protein Negative Urine Glucose (UA) Negative Urine Ketones Negative Urine Blood Negative Urine Nitrite Negative Urine Bilirubin Negative Urine Urobilinogen Negative Ur Leukocyte Esterase Negative 02/17/18 02/18/18 02/18/18 23:08 06:08 06:15 WBC 11.6 H RBC 3.21 L Hgb 8.5 L D Hct 26.1 L MCV 81.4 MCH 26.4 MCHC 32.5 RDW 15.4 Plt Count 203 MPV 8.5 POC Glucometer 127 113 Ferritin Urine Color Urine Appearance Urine pH Ur Specific [place] Urine Protein Urine Glucose (UA) Urine Ketones Urine Blood Urine Nitrite Urine Bilirubin Urine Urobilinogen Ur Leukocyte Esterase 02/18/18 06:15 WBC RBC Hgb Hct MCV MCH MCHC RDW Plt Count MPV POC Glucometer Ferrit[place] 170.570 Urine Color Urine Appearance Urine pH Ur Specific [place] Urine Protein Urine Glucose (UA) Urine Ketones Urine Blood Urine Nitrite Urine Bilirubin Urine Urobilinogen Ur Leukocyte Esterase HOSPITAL COURSE: Date of Admission:02/15/18 Date of Discharge: 02/18/18 Minutes to complete discharge: 30 Discharge Summary Reason For Visit: SPINAL STENOSIS, LUMBAR Current Active Problems Diabetes (Acute) Diabetes mellitus, type II (Acute) Obesity (Acute) S/P laminectomy (Acute) Spinal stenosis of lumbar region (Acute) Condition: Stable - Instructions Diet, Activity, Other Instructions: Discharge Instructions Dear FRANK MORALES, Post Operative Instructions Physical activity Resume your normal everyday activity as tolerated no heavy lifting or exercise until seen by your surgeon. You may walk unlimited amounts of and climb stairs. You may resume driving the car when you feel safe and comfortable behind the wheel. Do not operate a vehicle while taking narcotic pain medication. Wound care The dressing can stay on until you are seen in the office, only remove it if it becomes wet or soiled. Do not shower or apply ointments or creams. Keep incision clean and dry. Diet There are no dietary restrictions. Eat healthy, high-fiber foods. Drink 6 to 8 glasses of liquid each day. This will assist in keeping your bowels are regular. Pain management You may take Tylenol or acetaminophen. Any pain prescription medication ordered should be taken as prescribed for moderate to severe pain. Call Dr. Claire for any of the following: Severe pain not relieved by medication Fever of 101 or higher Excessive bleeding or drainage on dressing Inability to urinate If you experience chest pain or shortness of breath please seek emergency treatment. Call the office for a post operative appointment with Dr Claire next Make sure you follow up with your primary care doctor. If you experience new symptoms or if your symptoms recur, please return to the emergency department. Referrals: Danilo Claire MD [Staff Physician] - 1 Week Disposition: HOME - Home Medications Comprehensive Discharge Medication List: Ambulatory Orders Gabapentin [Neurontin] 800 mg PO BID 02/12/18 Metformin HCl 500 mg PO DAILY 02/12/18 Oxycodone HCl/Acetaminophen [Percocet 10-325 mg Tablet] 1 each PO QID 02/12/18 Sertraline HCl [Zoloft] 100 mg PO BID 02/12/18 Tizanidine HCl 2 mg PO HS 02/12/18 Acetaminophen [Tylenol .Regular Strength -] 650 mg PO Q6H PRN #30 tablet Docusate Sodium [Colace -] 100 mg PO BID #14 capsule 02/18/18 - Discharge Referral Referred to [facility] Med P.C.: No
--- NOTE | 2018-02-18 12:28 | PN ---
Teaching Attending Note Name of Resident: Adalberto Simental ATTENDING PHYSICIAN STATEMENT I saw and evaluated the patient. I reviewed the resident's note and discussed the case with the resident. I agree with the resident's findings and plan as documented. SUBJECTIVE:upset stating that she wants to go home. states the beds are uncomfortable and does not want to sleep here. deneis Cp, SOB, fever, chills, cough, N/V/C/D, normal BM, abdominal pain or pain in the back at incision site OBJECTIVE: Last Vital Signs Temp Pulse Resp BP Pulse Ox 102.1 F H 103 H 20 100/53 94 L 02/18/18 06:00 02/18/18 06:00 02/18/18 06:00 02/18/18 06:00 02/17/18 21:00 General tearful during exam CV S1 S2 tachy Lungs CTA B/L no wheezing/rales/rhonchi Abdomen soft NT/ND Extremities no pedal edema back bandage c/d/i, refused my removal of gauze tapped to top of the incision site no swelling or drainage noted ASSESSMENT AND PLAN: 52yo F wtih PMH DM and depression and spinal stenosis who came for scheduled laminectomy 1. Spinal stenosis- S/p L1-S1 laminetomy, L1-L2, L2-L3 SPO, L1-S1 PISF 02/15. with hemovac removal yesterday. refusing my evaluation of the area. cont pain control. further management per neurosugery. 2. Fever- Tm 102.1. mild leukocytosis. sepsis workup negative so far (UA and CXR ). back does not appear infected of what i am able to evaluate. liekly due to surgery. if haves an additional fever later in the day would need to consider imaging the spine to r/o collection at this area. Neurosurg is aware of fevers and not concerned per RN 2. hypotension-has been stable. likely patients normal. 3. Normocytic anemia- likely due to surgery. slowly trending down. no signs of bleeding. will check CBC later today. 4. DM- controlled. will monitor as diet is advanced. iss. will discharge on home medications 5. DVT ppx- EAM. recent neurosurgery would hold pharmacologic anticoagulation 6. very upset and wants to go home. explained with fever and dropping Hgb would better to be observed. explained risks and benefits of staying in the hospital. verbalized understanding. agreeing to stay at this time.
[2018-02-18 13:03] LABS: HEMATOCRIT 26.2 % (32.4-45.2); HEMOGLOBIN 8.6 GM/dL (10.7-15.3); MCH 26.6 pg (25.7-33.7); MCHC 32.7 g/dl (32.0-36.0); MEAN CELL VOLUME 81.3 fl (80-96); MEAN PLT VOLUME 8.2 fl (7.5-11.1); PLATELET COUNT 204 K/MM3 (134-434); RBC 3.22 M/mm3 (3.60-5.2); RDW 15.4 % (11.6-15.6); WHITE BLOOD COUNT 13.3 K/mm3 (4.0-10.0)
[2018-02-18] MEDS: TIZANIDINE HCL 2 MG TABLET PO SCH (22:02)
[2018-02-18] MEDS: IBUPROFEN 400 MG TABLET (FP) PO PRN (22:07)
[2018-02-19] MEDS: oxyCODONE HCL 5 MG TABLET PO PRN ×2 (05:21→12:52)
[2018-02-19] MEDS: IBUPROFEN 400 MG TABLET (FP) PO PRN ×2 (05:21→12:51)
[2018-02-19] MEDS ORDERED: SODIUM CHLORIDE 1,000 ML IV STA (05:27)
[2018-02-19] MEDS: INSULIN SLIDING SCALE (NOVOLOG) 1 VIAL SQ SCH ×3 (06:05→17:03)
[2018-02-19 06:06] LABS: SERUM IRON SATURATION 5 % (15-55); TOTAL IRON BINDING CAPACITY 222 ug/dL (250-450); UIBC 210 ug/dL (131-425)
[2018-02-19 08:07] LABS: BASO % 0.2 % (0-2.0); EOS % 0.1 % (0-4.5); HEMATOCRIT 25.6 % (32.4-45.2); HEMOGLOBIN 8.4 GM/dL (10.7-15.3); LYMPH % 8.6 % (8-40); MCH 26.6 pg (25.7-33.7); MCHC 32.9 g/dl (32.0-36.0); MEAN CELL VOLUME 80.9 fl (80-96); MEAN PLT VOLUME 8.5 fl (7.5-11.1); NEUT % 81.1 % (42.8-82.8); PLATELET COUNT 227 K/MM3 (134-434); RBC 3.16 M/mm3 (3.60-5.2); RDW 15.3 % (11.6-15.6); WHITE BLOOD COUNT 12.9 K/mm3 (4.0-10.0)
--- NOTE | 2018-02-19 08:13 | PN ---
Physical Exam: SUBJECTIVE: Patient seen and examined at bedside. Pt had recurrant fever 101.5 F (02/18/2018 8PM). Per night team, pt was complaining of headache despite medical therapy for much of the night. She was given motrin, which helped but did not resolve the pain. The surgeon was contacted and reportedly recommended strict bedrest, which the pt states has helped somewhat. Pt's BP reportedly dropped to 85/41. She was given a bolus, and BP came back up to 106/59. Per nurse, dressing had some moisture on the upper portion and had to be repositioned overnight, although it was not removed. On my interview, pt was not in pain. She was lying flat in bed playing games on her ipad in no distress. Currently afebrile. OBJECTIVE: Vital Signs Period Temp Pulse Resp BP Sys/Zacarias Pulse Ox Last 24 Hr 98.6 F-101.5 F 75-106 18-20 85-115/41-60 94-96 GENERAL: The patient is awake, alert, and fully oriented. Pt in no distress. Lying flat in bed. HEAD: Normal with no signs of trauma. EYES:extraocular movements intact, sclera anicteric, conjunctiva clear. No ptosis. ENT: oropharynx clear without exudates, moist mucous membranes. NECK: Trachea midline, supple. LUNGS: Breath sounds equal, clear to auscultation bilaterally, no wheezes, no crackles, no accessory muscle use. HEART: Regular rate and rhythm, S1, S2 without murmur, rub or gallop. BACK: dressing cdi upper-thoracic ABDOMEN: Soft, nontender, nondistended, normoactive bowel sounds, no guarding, no rebound, no hepatosplenomegaly, no masses. EXTREMITIES: 2+ pulses, warm, well-perfused, no edema. NEUROLOGICAL: Cranial nerves II through XII grossly intact. Moves all extremities spontaneously. No focal sensory deficit. Normal speech, gait not observed. PSYCH: Normal mood, normal affect. SKIN: Warm, dry, normal turgor, no rashes or lesions noted Laboratory Results - last 24 hr 02/18/18 02/18/18 02/18/18 06:15 06:15 12:25 WBC RBC Hgb Hct MCV MCH MCHC RDW Plt Count MPV POC Glucometer 105 Iron 12 L TIBC 222 L Iron Saturation 5 L Ferritin 170.570 02/18/18 02/18/18 02/18/18 12:45 18:19 21:44 WBC 13.3 H RBC 3.22 L Hgb 8.6 L Hct 26.2 L MCV 81.3 MCH 26.6 MCHC 32.7 RDW 15.4 Plt Count 204 MPV 8.2 POC Glucometer 127 119 Iron TIBC Iron Saturation Ferritin 02/19/18 05:58 WBC RBC Hgb Hct MCV MCH MCHC RDW Plt Count MPV POC Glucometer 133 Iron TIBC Iron Saturation Ferritin Active Medications Generic Name Dose Route Start Last Admin Trade Name Freq PRN Reason Stop Dose Admin Acetaminophen 650 mg 02/17/18 16:34 02/18/18 20:14 Tylenol - PO 650 mg Q6H PRN Administration FEVER Dexamethasone Sodium Phosphate 4 mg 02/17/18 12:23 02/18/18 20:19 Decadron Injection - IVPUSH 4 mg ONCE PRN Administration NAUSEA AND/OR VOMITING Diphenhydramine HCl 12.5 mg 02/17/18 12:23 Benadryl Injection - IVPUSH ONCE PRN FOR ITCHING Docusate Sodium 100 mg 02/16/18 22:00 02/18/18 22:01 Colace - PO 100 mg BID MILA Administration Fentanyl 50 mcg 02/17/18 12:23 Sublimaze Injection - IVPUSH [id number] PRN PAIN-PACU ORDER X 4 DOSES ONLY Gabapentin 800 mg 02/17/18 22:00 02/18/18 22:01 Neurontin - PO 800 mg BID MILA Administration Ibuprofen 400 mg 02/18/18 22:05 02/19/18 05:21 Motrin - PO 400 mg Q8H PRN Administration HEADPAIN Insulin Aspart 1 vial 02/17/18 11:00 02/19/18 06:05 Novolog Vial Sliding Scale - SQ Not Given TIDAC [facility] Protocol Ondansetron HCl 4 mg 02/17/18 12:23 02/18/18 16:50 Zofran Injection IVPUSH 4 mg Q6H PRN Administration NAUSEA AND/OR VOMITING Oxycodone HCl 5 mg 02/16/18 15:55 02/19/18 05:21 Roxicodone - PO 5 mg Q3H PRN Administration PAIN LEVEL 4 - 6 Oxycodone HCl 10 mg 02/16/18 15:55 02/18/18 18:41 Roxicodone - PO 10 mg Q3H PRN Administration PAIN LEVEL 7 - 10 Oxycodone HCl 10 mg 02/16/18 16:30 02/18/18 22:01 Oxycontin - PO 10 mg BID MILA Administration Promethazine HCl 12.5 mg 02/17/18 12:23 Phenergan Injection - IVPB Q6H PRN NAUSEA AND/OR VOMITING Sertraline HCl 100 mg 02/17/18 09:00 02/18/18 22:02 Zoloft - PO 100 mg BID MILA Administration Tizanidine HCl 2 mg 02/17/18 22:00 02/18/18 22:02 Tizanidine Hcl PO 2 mg HS MILA Administration ASSESSMENT/PLAN: 52F with PMH of DM, Lumbar spinal stenosis, and depression s/p L1-S1 laminectomies, L1-L2, L2-L3 SPO, L1-S1 PISF. Patient was was initially transferred to the ICU for post-op monitoring and is now on the surgical floors. #Post op fever -POD 4 -febrile this morning -CXR done and neg for acute disease -BCx negative so far. #Lumbar stenosis s/p L1-S1 laminectomies, L1-L2, L2-L3 SPO, L1-S1 PISF -POD 4 -Pain control-now on PO medications Percocet -drain removed (02/17/2018) -Advance diet as tolerated -Trend CBC due to large volume blood loss in OR: last Hb 8.6 normocytic -phenergan -zofran -Decadron -Benadryl -Fentanyl PRN -Oxycontin -continue gabapentin -continue Tizanidine -Hold Physical therapy -Spoke with surgeon. Recs bedrest, elevate head to 30 deg for eating, otherwise strict bedrest for 48hrs, keep room dark, advil 600 for pain. Stated wound looked ok this am. If any imaging is needed, recommended MRI to r/o CSF leak. #DM -Blood sugar well controlled at this time -DM diet -BGM ACHS -ISS TIDAC #Depression -Zoloft -Tizanidine #FEN -No IVF -lytes wnl -Advance diet as tolerated per surgery-PA to speak to Dr. Claire about regular diet #Dispo -Transferred to med-surg for spine surgery recovery Adalberto Simental MD PGY-1 IM Visit type - Emergency Visit Emergency Visit: No - New Patient This patient is new to me today: No - Critical Care Critical Care patient: No - Discharge Referral Referred to [facility] Med P.C.: No
[2018-02-19] MEDS: SERTRALINE HCL 50 MG TABLET (FP) PO SCH ×2 (09:01→21:04)
[2018-02-19] MEDS: GABAPENTIN 400 MG CAPSULE (FP) PO SCH ×3 (09:01→21:04)
[2018-02-19] MEDS: DOCUSATE SODIUM 100 MG CAPSULE (FP) PO SCH ×2 (09:01→21:03)
[2018-02-19] MEDS: oxyCODONE HCL 10 MG SUSTAINED ACTING TABLET PO SCH ×2 (09:04→21:47)
--- NOTE | 2018-02-19 10:31 | PN ---
Teaching Attending Note Name of Resident: Adalberto Simental ATTENDING PHYSICIAN STATEMENT I saw and evaluated the patient. I reviewed the resident's note and discussed the case with the resident. I agree with the resident's findings and plan as documented. SUBJECTIVE:c/o nausea this AM. difficulty eating due to nausea. had severe ZHONG last night which has improved since laying flat. deneis Cp,SOB, fever, chills, cough, N/V/C/D OBJECTIVE: Last Vital Signs Temp Pulse Resp BP Pulse Ox 98.9 F 83 20 106/59 96 02/19/18 06:00 02/19/18 06:18 02/19/18 06:18 02/19/18 06:18 02/18/18 21:00 General NAD CV S1 S2 RRR no murmur/rub/gallop Lungs CTA B/L no wheezing/rales/rhonchi Abdomen soft NT/ND back bandage c/d/i, ASSESSMENT AND PLAN: 52yo F wtih PMH DM and depression and spinal stenosis who came for scheduled laminectomy 1. Spinal stenosis- S/p L1-S1 laminetomy, L1-L2, L2-L3 SPO, L1-S1 PISF 02/15. with hemovac removed. possible CSF leak and dural tear. pt instructed to lay flat, can sit up at 30degrees when eating. avoid turning on lights. cont pain control. further management per neurosugery. 2. Fever- Tm 101.5. afebrile since last night. leukocytosis trending down. workup negative so far. will hold off on any further workup at this time. 3. ZHONG- due to high possibility for dural tear. as per above. will have pt lay flat for 48H to see if resolves 4. Nausea- probably due to poor po intake and laying flat. will start pepcid IV. [place] prn. encourage po intake. agrees to drinking shakes. start low dose IVF while appetite is poor. 5. hypotension-has been stable. likely patients normal. 6. Normocytic anemia- likely due to surgery. stable. no signs of bleeding. iron studies pending 7. DM- controlled. will monitor as diet is advanced. iss. will discharge on home medications 8. DVT ppx- EAM. recent neurosurgery would hold pharmacologic anticoagulation
[2018-02-19] MEDS ORDERED: MAG HYDROX/AL HYDROX/SIMETH 30 ML UNIT-DOSE CUP PO ONE (10:45)
[2018-02-19] MEDS: SODIUM CHLORIDE 1,000 ML IV SCH (10:53)
[2018-02-19] MEDS ORDERED: DEXAMETHASONE SOD PHOSPHATE 4 MG/1 ML VIAL IVPUSH ONE (18:05)
[2018-02-19] MEDS: TIZANIDINE HCL 2 MG TABLET PO SCH (21:05)
[2018-02-20] MEDS: oxyCODONE HCL 5 MG TABLET PO PRN ×2 (00:53→05:43)
[2018-02-20] MEDS: ACETAMINOPHEN 325 MG TABLET (FP) PO PRN (02:06)
[2018-02-20] MEDS ORDERED: DEXAMETHASONE SOD PHOSPHATE 4 MG/1 ML VIAL IVPUSH ONE (02:56)
[2018-02-20] MEDS: GABAPENTIN 400 MG CAPSULE (FP) PO SCH ×3 (05:44→21:04)
[2018-02-20] MEDS: INSULIN SLIDING SCALE (NOVOLOG) 1 VIAL SQ SCH ×3 (06:11→17:12)
[2018-02-20 08:44] LABS: BASO % 0.2 % (0-2.0); EOS % 0.1 % (0-4.5); HEMATOCRIT 26.3 % (32.4-45.2); HEMOGLOBIN 8.7 GM/dL (10.7-15.3); LYMPH % 8.8 % (8-40); MCH 26.9 pg (25.7-33.7); MCHC 33.1 g/dl (32.0-36.0); MEAN CELL VOLUME 81.2 fl (80-96); MEAN PLT VOLUME 8.7 fl (7.5-11.1); MONO % 8.3 % (3.8-10.2); NEUT % 82.6 % (42.8-82.8); PLATELET COUNT 306 K/MM3 (134-434); RBC 3.24 M/mm3 (3.60-5.2); RDW 15.2 % (11.6-15.6)
[2018-02-20] MEDS: DOCUSATE SODIUM 100 MG CAPSULE (FP) PO SCH ×2 (09:14→21:05)
[2018-02-20] MEDS: SERTRALINE HCL 50 MG TABLET (FP) PO SCH ×2 (09:14→21:04)
[2018-02-20] MEDS: oxyCODONE HCL 10 MG SUSTAINED ACTING TABLET PO SCH ×2 (09:14→21:06)
[2018-02-20] MEDS: SODIUM CHLORIDE 1,000 ML IV SCH ×2 (09:19→21:02)
--- NOTE | 2018-02-20 13:03 | PN ---
Progress Note (short form) - Note Progress Note: c/o numbness and pain radiating down her R leg. started last night. states pain is unbearable and not improving with pain medication. states ZHONG has resolved. appetite has improved but when pain is unbearable is unable to eat. denies CP, SOb, fever, chills, N/V/C/D, blurred vision or tinnitus Current Medications Generic Name Dose Route Start Last Admin Trade Name Freq PRN Reason Stop Dose Admin Acetaminophen 650 mg 02/17/18 16:34 02/20/18 02:06 Tylenol - PO 650 mg Q6H PRN Administration FEVER Diphenhydramine HCl 12.5 mg 02/17/18 12:23 Benadryl Injection - IVPUSH ONCE PRN FOR ITCHING Docusate Sodium 100 mg 02/16/18 22:00 02/20/18 09:14 Colace - PO 100 mg BID MILA Administration Gabapentin 800 mg 02/19/18 14:00 02/20/18 05:44 Neurontin - PO 800 mg TID MILA Administration Sodium Chloride 1,000 mls @ 100 mls/hr 02/19/18 07:38 02/20/18 09:19 Normal Saline - IV 100 mls/hr ASDIR MILA Administration Ibuprofen 400 mg 02/18/18 22:05 02/19/18 12:51 Motrin - PO 400 mg Q8H PRN Administration HEADPAIN Insulin Aspart 1 vial 02/17/18 11:00 02/20/18 06:11 Novolog Vial Sliding Scale - SQ Not Given TIDAC [facility] Protocol Ondansetron HCl 4 mg 02/17/18 12:23 02/18/18 16:50 Zofran Injection IVPUSH 4 mg Q6H PRN Administration NAUSEA AND/OR VOMITING Oxycodone HCl 10 mg 02/16/18 16:30 02/20/18 09:14 Oxycontin - PO 10 mg BID MILA Administration Oxycodone HCl 5 mg 02/19/18 09:22 02/20/18 05:43 Roxicodone - PO 5 mg Q4H PRN Administration PAIN LEVEL 6-10 Promethazine HCl 12.5 mg 02/17/18 12:23 Phenergan Injection - IVPB Q6H PRN NAUSEA AND/OR VOMITING Sertraline HCl 100 mg 02/17/18 09:00 02/20/18 09:14 Zoloft - PO 100 mg BID MILA Administration Tizanidine HCl 2 mg 02/17/18 22:00 02/19/18 21:05 Tizanidine Hcl PO 2 mg HS MILA Administration Last Vital Signs Temp Pulse Resp BP Pulse Ox 99.9 F H 72 20 140/75 96 02/20/18 06:00 02/20/18 06:00 02/20/18 06:00 02/20/18 06:00 02/19/18 21:00 General mildly anxious CV S1 S2 RRR no murmur/rub/gallop Lungs CTA B/L no wheezing/rales/rhonchi Abdomen soft NT/ND back bandage c/d/i, CBCD WBC 10.0 K/mm3 (4.0-10.0) 02/20/18 06:00 RBC 3.24 M/mm3 (3.60-5.2) L 02/20/18 06:00 Hgb 8.7 GM/dL (10.7-15.3) L 02/20/18 06:00 Hct 26.3 % (32.4-45.2) L 02/20/18 06:00 MCV 81.2 fl (80-96) 02/20/18 06:00 MCHC 33.1 g/dl (32.0-36.0) 02/20/18 06:00 RDW 15.2 % (11.6-15.6) 02/20/18 06:00 Plt Count 306 K/MM3 (134-434) D 02/20/18 06:00 MPV 8.7 fl (7.5-11.1) 02/20/18 06:00 Microbiology 02/17/18 19:15 Blood Culture - Preliminary Blood - Peripheral Venous NO GROWTH OBTAINED AFTER 48 HOURS, INCUBATION TO CONTINUE FOR 3 DAYS. 02/17/18 17:18 Blood Culture - Preliminary Blood - Peripheral Venous NO GROWTH OBTAINED AFTER 48 HOURS, INCUBATION TO CONTINUE FOR 3 DAYS. ASSESSMENT AND PLAN: 52yo F with PMH DM and depression and spinal stenosis who came for scheduled laminectomy 1. Spinal stenosis- S/p L1-S1 laminetomy, L1-L2, L2-L3 SPO, L1-S1 PISF 02/15. with hemovac removed. concern for CSF leak with ZHONG but has now resolved and dressing was dry. now concern for hematoma on lower aspect of incision. spoke with neurosugery. will start dialudid prn pain and valium. if radiculopathy pain does not resolve by thursday plan to return to the OR on thursday for decompression. cont complete bedrest with laying flat. further management per neurosugery. 2. Fever- Tm 100.9. leukocytosis resolved. workup negative so far. will hold off on any further workup at this time. 3. ZHONG- due to high possibility for dural tear. now resolved. bandage reported dry per surgeon. believe CSF leak self resolved. 4. Nausea- probably due to poor po intake and laying flat. improved. cont pepcid. tolerating shakes but not eating much. cont low dose IVF during poor appetite. 5. hypotension-has been stable. likely patients normal. now elevated due to pain. monitor closely. 6. Normocytic anemia- likely due to surgery. stable. no signs of bleeding. iron studies pending 7. DM- controlled. will monitor as diet is advanced. iss. will discharge on home medications 8. DVT ppx- EAM. recent neurosurgery would hold pharmacologic anticoagulation Visit type - Emergency Visit Emergency Visit: Yes ED Registration Date: 02/15/18 Care time: The patient presented to the Emergency Department on the above date and was hospitalized for further evaluation of their emergent condition. - New Patient This patient is new to me today: No - Critical Care Critical Care patient: No - Discharge Referral Referred to [facility] Med P.C.: No
--- NOTE | 2018-02-20 13:04 | PN ---
Progress Note (short form) - Note Progress Note: POD#5 Patient was assessed by myself on Thu and Thursday Today No headache C/O localised pain R loin with new onset radiculopathic pain R LE Wound dry General Still c/o intermittent cold feelings Vitals See chart CVS Stable Resp Clear AE equal bilaterally ABD Soft BS good MSKELETAL Wound dry Local hyperestheia on skin Wound dressing reapplied Neuro L L5 radiculopathy ? reason Motors to all LE 02/06 ASSESS Dural appears to have sealed New radiculopathy ? hematoma pressure PLAN Bed rest continue 24 hrs Regular diet Increase the pain Mx as discussed with the hospitalist team Review re reexploration of wound Thursday
[2018-02-20] MEDS ORDERED: HYDROmorphone HCL CARPU-JECT 1 MG/1 ML DISP.SYRIN IVPUSH PRN (13:09)
[2018-02-20] MEDS: diazePAM 5 MG TABLET PO PRN (14:37)
[2018-02-20] MEDS: MORPHINE SULFATE 10 MG/1 ML *VIAL IVPUSH PRN ×3 (14:38→22:07)
[2018-02-20] MEDS ORDERED: PT OWN MED DRAWER 7, Y5N ONE (20:12)
[2018-02-20] MEDS: TIZANIDINE HCL 2 MG TABLET PO SCH (21:05)
[2018-02-20] MEDS: diazePAM 5 MG TABLET PO SCH (21:05)
[2018-02-21] MEDS: MORPHINE SULFATE 10 MG/1 ML *VIAL IVPUSH PRN ×2 (03:38→07:52)
[2018-02-21] MEDS: GABAPENTIN 400 MG CAPSULE (FP) PO SCH ×3 (05:47→21:56)
[2018-02-21] MEDS: INSULIN SLIDING SCALE (NOVOLOG) 1 VIAL SQ SCH ×3 (06:04→17:34)
[2018-02-21] MEDS: SODIUM CHLORIDE 1,000 ML IV SCH ×2 (06:23→22:04)
[2018-02-21] MEDS: diazePAM 5 MG TABLET PO PRN (06:47)
[2018-02-21 08:50] LABS: BASO % 0.4 % (0-2.0); EOS % 3.8 % (0-4.5); HEMOGLOBIN 8.2 GM/dL (10.7-15.3); LYMPH % 30.7 % (8-40); MCH 26.4 pg (25.7-33.7); MCHC 32.7 g/dl (32.0-36.0); MEAN CELL VOLUME 80.7 fl (80-96); MEAN PLT VOLUME 8.4 fl (7.5-11.1); MONO % 11.1 % (3.8-10.2); PLATELET COUNT 352 K/MM3 (134-434); RBC 3.09 M/mm3 (3.60-5.2); RDW 15.2 % (11.6-15.6); WHITE BLOOD COUNT 8.8 K/mm3 (4.0-10.0)
[2018-02-21] MEDS: SERTRALINE HCL 50 MG TABLET (FP) PO SCH ×2 (09:32→21:56)
[2018-02-21] MEDS: oxyCODONE HCL 10 MG SUSTAINED ACTING TABLET PO SCH ×2 (09:32→21:56)
[2018-02-21] MEDS: DOCUSATE SODIUM 100 MG CAPSULE (FP) PO SCH ×2 (09:33→21:56)
[2018-02-21] MEDS ORDERED: KETOROLAC TROMETHAMINE 30 MG/1 ML VIAL IVPUSH ONE ×2 (10:15→18:00)
--- NOTE | 2018-02-21 12:21 | PN ---
Progress Note (short form) - Note Progress Note: Much improved Walked in the hallway Showered etc. No headache No radiculopathic pain Neuro status all at baseline Wound dry Plan ressess tomorrow re D/C
[2018-02-21] MEDS ORDERED: HYDROmorphone HCL CARPU-JECT 2 MG/1 ML DISP.SYRIN IVPB PRN (14:17)
[2018-02-21] MEDS ORDERED: KETOROLAC TROMETHAMINE 15 MG/ML VIAL IM PRN ×2 (14:18→22:00)
[2018-02-21] MEDS ORDERED: oxyCODONE HCL 10 MG SUSTAINED ACTING TABLET PO SCH (14:19)
--- NOTE | 2018-02-21 14:20 | PN ---
Teaching Attending Note Name of Resident: Adalberto Simental ATTENDING PHYSICIAN STATEMENT I saw and evaluated the patient. I reviewed the resident's note and discussed the case with the resident. I agree with the resident's findings and plan as documented. SUBJECTIVE: OBJECTIVE: ASSESSMENT AND PLAN: 52yo F with PMH DM and depression and spinal stenosis who came for scheduled laminectomy 1. Spinal stenosis- S/p L1-S1 laminetomy, L1-L2, L2-L3 SPO, L1-S1 PISF 02/15. with hemovac removed. concern for CSF leak with ZHONG but has now resolved and dressing was dry. now concern for hematoma on lower aspect of incision. spoke with neurosugery. will start dialudid prn pain and valium. if radiculopathy pain does not resolve by thursday plan to return to the OR on thursday for decompression. cont complete bedrest with laying flat. further management per neurosugery. - start hydromorphone 2mg q4hrs - increase morphine SR to 15mg BID - c/w oxycodone 10mg - toradol prn for severe pain 2. Fever- resolved leukocytosis resolved. workup negative so far. 3. Headache - due to high possibility for dural tear. now resolved. bandage reported dry per surgeon. believe CSF leak self resolved. 4. Nausea- probably due to poor po intake and laying flat. improved. cont pepcid. tolerating shakes but not eating much. cont low dose IVF during poor appetite. 5. hypotension-has been stable. likely patients normal. now elevated due to pain. monitor closely. 6. Normocytic anemia- likely due to surgery. stable. no signs of bleeding. iron studies pending 7. DM- controlled. will monitor as diet is advanced. iss. will discharge on home medications 8. DVT ppx- EAM. recent neurosurgery would hold pharmacologic anticoagulation
--- NOTE | 2018-02-21 14:23 | PN ---
Physical Exam: SUBJECTIVE: Patient seen and examined at bedside. Pt had fever 100.5 yesterday at 3pm. Pt found to be watching tv on ipad. Began crying complaining of pain in her leg. Repeatedly stating that she didn't feel the medicine burning when it was injected and therefore has pain. Nurse confirmed that medication was given. Pt states headache is gone. OBJECTIVE: Vital Signs Period Temp Pulse Resp BP Sys/Zacarias Pulse Ox Last 24 Hr 98.5 F-100.5 F 71-88 20-20 89-129/30-82 96 GENERAL: The patient is awake, alert, and fully oriented, visibly upset HEAD: Normal with no signs of trauma. EYES: extraocular movements intact, sclera anicteric, conjunctiva clear. No ptosis. ENT: oropharynx clear without exudates, moist mucous membranes. LUNGS: Breath sounds equal, clear to auscultation bilaterally, no wheezes, no crackles, no accessory muscle use. HEART: Regular rate and rhythm, S1, S2 without murmur, rub or gallop. ABDOMEN: Soft, nontender, nondistended, normoactive bowel sounds, no guarding, no rebound, no hepatosplenomegaly, no masses. EXTREMITIES: 2+ pulses, warm, well-perfused, no edema. No tenderness to palpation. Moving limbs spontaneously. No limitation on ROM. NEUROLOGICAL: Cranial nerves II through XII grossly intact. Normal speech, gait not observed. PSYCH: Normal mood, normal affect. SKIN: Warm, dry, normal turgor, no rashes or lesions noted Laboratory Results - last 24 hr 02/20/18 02/21/18 02/21/18 17:10 05:46 07:30 WBC 8.8 RBC 3.09 L Hgb 8.2 L Hct 25.0 L MCV 80.7 MCH 26.4 MCHC 32.7 RDW 15.2 Plt Count 352 MPV 8.4 Neutrophils % 54.0 D Lymphocytes % 30.7 D Monocytes % 11.1 H Eosinophils % 3.8 D Basophils % 0.4 POC Glucometer 145 96 02/21/18 12:21 WBC RBC Hgb Hct MCV MCH MCHC RDW Plt Count MPV Neutrophils % Lymphocytes % Monocytes % Eosinophils % Basophils % POC Glucometer 128 Active Medications Generic Name Dose Route Start Last Admin Trade Name Freq PRN Reason Stop Dose Admin Acetaminophen 650 mg 02/17/18 16:34 02/20/18 02:06 Tylenol - PO 650 mg Q6H PRN Administration FEVER Diazepam 5 mg 02/20/18 13:09 02/21/18 06:47 Valium - PO 5 mg Q8H PRN Administration anxiety Diazepam 5 mg 02/20/18 22:00 02/20/18 21:05 Valium - PO 5 mg HS MILA Administration Diphenhydramine HCl 12.5 mg 02/17/18 12:23 Benadryl Injection - IVPUSH ONCE PRN FOR ITCHING Docusate Sodium 100 mg 02/16/18 22:00 02/21/18 09:33 Colace - PO 100 mg BID MILA Administration Gabapentin 800 mg 02/19/18 14:00 02/21/18 05:47 Neurontin - PO 800 mg TID [facility] Administration Sodium Chloride 1,000 mls @ 100 mls/hr 02/19/18 07:38 02/21/18 06:23 Normal Saline - IV 100 mls/hr ASDIR [facility] Administration Ibuprofen 400 mg 02/18/18 22:05 02/19/18 12:51 Motrin - PO 400 mg Q8H PRN Administration HEADPAIN Insulin Aspart 1 vial 02/17/18 11:00 02/21/18 06:04 Novolog Vial Sliding Scale - SQ Not Given TIDAC [facility] Protocol Ketorolac Tromethamine 30 mg 02/21/18 18:00 Toradol Injection - IVPUSH 02/21/18 18:01 ONCE ONE Morphine Sulfate 5 mg 02/20/18 13:54 02/21/18 07:52 Morphine Injection - IVPUSH 5 mg Q4H PRN Administration SEVERE PAIN 6-10 Ondansetron HCl 4 mg 02/17/18 12:23 02/18/18 16:50 Zofran Injection IVPUSH 4 mg Q6H PRN Administration NAUSEA AND/OR VOMITING Oxycodone HCl 10 mg 02/16/18 16:30 02/21/18 09:32 Oxycontin - PO 10 mg BID MILA Administration Oxycodone HCl 5 mg 02/19/18 09:22 02/20/18 05:43 Roxicodone - PO 5 mg Q4H PRN Administration PAIN LEVEL 6-10 Promethazine HCl 12.5 mg 02/17/18 12:23 Phenergan Injection - IVPB Q6H PRN NAUSEA AND/OR VOMITING Sertraline HCl 100 mg 02/17/18 09:00 02/21/18 09:32 Zoloft - PO 100 mg BID MILA Administration Tizanidine HCl 2 mg 02/17/18 22:00 02/20/18 21:05 Tizanidine Hcl PO 2 mg HS MILA Administration ASSESSMENT/PLAN: 52F with PMH of DM, Lumbar spinal stenosis, and depression s/p L1-S1 laminectomies, L1-L2, L2-L3 SPO, L1-S1 PISF. Patient was was initially transferred to the ICU for post-op monitoring and is now on the surgical floors. #Post op fever -POD 6 -febrile yesterday -CXR done and neg for acute disease -BCx negative #Lumbar stenosis s/p L1-S1 laminectomies, L1-L2, L2-L3 SPO, L1-S1 PISF (2017) -POD 6 -Pain control: Tylenol, Valium, Neurontin, Motrin, Oxycontin, Dilaudid, Toradol -drain removed (02/17/2018) -Advance diet as tolerated -Trend CBC due to large volume blood loss in OR: last Hb 8.2 normocytic -phenergan -zofran -Decadron -Benadryl -Oxycontin -gabapentin -Hold Physical therapy #DM -Blood sugar well controlled at this time -DM diet -BGM ACHS -ISS TIDAC #Depression -Zoloft -Tizanidine #FEN -No IVF -lytes wnl -Advance diet as tolerated per surgery-PA to speak to Dr. Claire about regular diet #Dispo -Transferred to med-surg for spine surgery recovery Adalberto Simental MD PGY-1 IM Visit type - Emergency Visit Emergency Visit: No - New Patient This patient is new to me today: No - Critical Care Critical Care patient: No - Discharge Referral Referred to [facility] Med P.C.: No
[2018-02-21] MEDS ORDERED: morphine CARPU-JECT 4 MG/1 ML DISP.SYRIN IVPUSH PRN (14:39)
[2018-02-21] MEDS: morphine SULFATE 4 MG/ML VIAL IVPUSH PRN ×2 (15:17→20:38)
[2018-02-21] MEDS ORDERED: PT OWN MED DRAWER 7, Y5N ONE (21:29)
[2018-02-21] MEDS: TIZANIDINE HCL 2 MG TABLET PO SCH (21:56)
[2018-02-21] MEDS: diazePAM 5 MG TABLET PO SCH (21:56)
[2018-02-22] MEDS: morphine SULFATE 4 MG/ML VIAL IVPUSH PRN ×3 (02:34→14:04)
[2018-02-22] MEDS: INSULIN SLIDING SCALE (NOVOLOG) 1 VIAL SQ SCH ×2 (06:03→12:09)
[2018-02-22] MEDS: GABAPENTIN 400 MG CAPSULE (FP) PO SCH ×2 (06:14→15:50)
[2018-02-22 07:30] LABS: BASO % 0.4 % (0-2.0); EOS % 6.3 % (0-4.5); HEMOGLOBIN 8.1 GM/dL (10.7-15.3); LYMPH % 35.5 % (8-40); MCH 26.2 pg (25.7-33.7); MCHC 32.6 g/dl (32.0-36.0); MEAN CELL VOLUME 80.6 fl (80-96); MONO % 10.4 % (3.8-10.2); NEUT % 47.4 % (42.8-82.8); PLATELET COUNT 414 K/MM3 (134-434); RDW 15.4 % (11.6-15.6); WHITE BLOOD COUNT 9.9 K/mm3 (4.0-10.0)
[2018-02-22 08:13] LABS: ALBUMIN 2.4 g/dl (3.4-5.0); ANION GAP 6 (8-16); BLOOD UREA NITROGEN 6 mg/dL (7-18); CALCIUM 8.2 mg/dL (8.5-10.1); CHLORIDE 109 mmol/L (98-107); CO2 28 mmol/L (21-32); GLUCOSE,RANDOM 81 mg/dL (74-106); POTASSIUM 4.5 mmol/L (3.5-5.1); SODIUM 143 mmol/L (136-145)
[2018-02-22 08:17] LABS: ALK PHOS 83 U/L (45-117); BILIRUBIN,TOTAL 0.3 mg/dL (0.2-1.0); CREATININE 0.5 mg/dL (0.55-1.02); SGOT/AST 28 U/L (15-37); SGPT/ALT 35 U/L (12-78); TOT PROT 5.8 g/dl (6.4-8.2)
[2018-02-22] MEDS: DOCUSATE SODIUM 100 MG CAPSULE (FP) PO SCH (09:01)
[2018-02-22] MEDS: oxyCODONE HCL 10 MG SUSTAINED ACTING TABLET PO SCH (09:01)
[2018-02-22] MEDS: SERTRALINE HCL 50 MG TABLET (FP) PO SCH (09:02)
[2018-02-22] MEDS ORDERED: IRON SUCROSE INJECTION 200 MG in SODIUM CHLORIDE 240 ML IVPB ONE (09:10)
[2018-02-22] MEDS: SODIUM CHLORIDE 1,000 ML IV SCH (09:23)
[2018-02-22] MEDS: diazePAM 5 MG TABLET PO PRN (10:55)
[2018-02-22 15:48] VITALS: BP 104/59; PULSE 81; TEMP 98.2
--- NOTE | 2018-02-22 16:59 | PN ---
Teaching Attending Note Name of Resident: Adalberto Simental ATTENDING PHYSICIAN STATEMENT I saw and evaluated the patient. I reviewed the resident's note and discussed the case with the resident. I agree with the resident's findings and plan as documented. SUBJECTIVE:asymptomatic. states pain in the leg has resolved. has ambulated up and down the [place] without difficulty. denies CP, SOB, fever, chills, N/V/C/D OBJECTIVE: Last Vital Signs Temp Pulse Resp BP Pulse Ox 98.2 F 81 18 104/59 96 02/22/18 10:00 02/22/18 10:00 02/22/18 10:00 02/22/18 10:00 02/21/18 21:00 General NAD ASSESSMENT AND PLAN: 52yo F with PMH DM and depression and spinal stenosis who came for scheduled laminectomy 1. Spinal stenosis- S/p L1-S1 laminetomy, L1-L2, L2-L3 SPO, L1-S1 PISF 02/15. with hemovac removed. hospital course was complicated by possible dural tear with CSF leak and development of RLE radiculopathy due to possible hematoma formation. all symptoms have now resolved. no indication for intervention at this time. pt to be d/c on pain medications and valium per neurosurgery discretion. f/u next week with neurosurgery 2. Fever-afebrile. leukocytosis resolved. no indication for abx. 3. ZHONG- due to high possibility for dural tear. now resolved. 4. Nausea- probably due to poor po intake and laying flat. improved. cont pepcid. 5. hypotension-has been stable. likely patients normal. now elevated due to pain. monitor closely. 6. Normocytic anemia- likely due to surgery. iron studies showing iron def anemia. will give venofer x1. states she been on iron supplements for 5 months and showing that its still low. may need to consider getting IV iron from PMD perhaps absorption problem. recommended to cont iron supplement. caution for constipation while on this and narcotics and to monitor for daily BM. 7. DM- controlled. will monitor as diet is advanced. iss. will discharge on home medications 8. DVT ppx- EAM. recent neurosurgery would hold pharmacologic anticoagulation 9. d/c home
--- NOTE | 2018-02-22 20:10 | DS ---
Physical Exam: SUBJECTIVE: Patient seen and examined at bedside. Pt feels well. OBJECTIVE: Vital Signs Period Temp Pulse Resp BP Sys/Zacarias Pulse Ox Last 24 Hr 98.2 F-99.4 F 75-82 18-20 104-126/59-73 96 PHYSICAL EXAM GENERAL: The patient is awake, alert, and fully oriented, in no acute distress. HEAD: Normal with no signs of trauma. EYES: extraocular movements intact, sclera anicteric, conjunctiva clear. ENT: oropharynx clear without exudates, moist mucous membranes. NECK: Trachea midline, full range of motion, supple. LUNGS: Breath sounds equal, clear to auscultation bilaterally, no wheezes, no crackles, no accessory muscle use. HEART: Regular rate and rhythm, S1, S2 without murmur, rub or gallop. ABDOMEN: Soft, nontender, nondistended, normoactive bowel sounds, no guarding, no rebound, no hepatosplenomegaly, no masses. EXTREMITIES: 2+ pulses, warm, well-perfused, no edema. NEUROLOGICAL: Cranial nerves II through XII grossly intact. Normal speech, gait not observed. PSYCH: Normal mood, normal affect. SKIN: Warm, dry, normal turgor, no rashes or lesions noted. LABS Laboratory Results - last 24 hr 02/21/18 02/22/18 02/22/18 22:03 05:53 06:15 WBC 9.9 RBC 3.10 L Hgb 8.1 L Hct 25.0 L MCV 80.6 MCH 26.2 MCHC 32.6 RDW 15.4 Plt Count 414 MPV 8.0 Neutrophils % 47.4 Lymphocytes % 35.5 Monocytes % 10.4 H Eosinophils % 6.3 H Basophils % 0.4 Sodium Potassium Chloride Carbon Dioxide Anion Gap BUN Creatinine Creat Clearance w eGFR POC Glucometer 126 85 Random Glucose Calcium Total Bilirubin AST ALT Alkaline Phosphatase Total Protein Albumin 02/22/18 06:15 WBC RBC Hgb Hct MCV MCH MCHC RDW Plt Count MPV Neutrophils % Lymphocytes % Monocytes % Eosinophils % Basophils % Sodium 143 Potassium 4.5 Chloride 109 H Carbon Dioxide 28 Anion Gap 6 L BUN 6 L Creatinine 0.5 L Creat Clearance w eGFR > 60 POC Glucometer Random Glucose 81 Calcium 8.2 L Total Bilirubin 0.3 D AST 28 ALT 35 Alkaline Phosphatase 83 Total Protein 5.8 L Albumin 2.4 L HOSPITAL COURSE: Date of Admission:02/15/18 Date of Discharge: 02/22/18 Pt came to the hospital for elective laminectomy. L1-S1 laminetomy, L1-L2, L2- L3 SPO, L1-S1 PISF 02/15. Post op, she developed a headache. She was placed on bedrest for presumed CSF leak 2/2 dural tear which resolved promptly. She developed pain in her right flank. She was treated with numerous pain medications and her discomfort ultimately dissipated. Pt had a fever and leukocytosis briefly after the surgery. Pt had a mild normocytic anemia. Pt was found to be Fe deficient despite taking Feosol supplements chronically. Pt recovered well. Pt is stable for discharge. Minutes to complete discharge: 30 Discharge Summary Reason For Visit: SPINAL STENOSIS, LUMBAR Condition: Stable - Instructions Diet, Activity, Other Instructions: Dr. Claire Discharge Instructions Dear FRANK MORALES, Post Operative Instructions Physical activity Resume your normal everyday activity as tolerated no heavy lifting or exercise until seen by your surgeon. You may walk unlimited amounts of and climb stairs. You may resume driving the car when you feel safe and comfortable behind the wheel. Do not operate a vehicle while taking narcotic pain medication. Wound care The dressing can stay on until you are seen in the office, only remove it if it becomes wet or soiled. Do not shower or apply ointments or creams. Keep incision clean and dry. Diet There are no dietary restrictions. Eat healthy, high-fiber foods. Drink 6 to 8 glasses of liquid each day. This will assist in keeping your bowels are regular. Pain management You may take Tylenol or acetaminophen. Any pain prescription medication ordered should be taken as prescribed for moderate to severe pain. Call Dr. Claire for any of the following: Severe pain not relieved by medication Fever of 101 or higher Excessive bleeding or drainage on dressing Inability to urinate If you experience chest pain or shortness of breath please seek emergency treatment. Call the office for a post operative appointment with Dr Claire next Make sure you follow up with your primary care doctor. You are being sent home with iron supplements, but need to talk to your primary care doctor about stronger iron supplements. You should recheck your iron studies in 3 months. If you experience new symptoms or if your symptoms recur, please return to the emergency department. Referrals: Danilo Claire MD [Staff Physician] - 1 Week Disposition: HOME - Home Medications Comprehensive Discharge Medication List: Ambulatory Orders Gabapentin [Neurontin] 800 mg PO TID 02/12/18 Metformin HCl 500 mg PO DAILY 02/12/18 Oxycodone HCl/Acetaminophen [Percocet 10-325 mg Tablet] 1 each PO QID 02/12/18 Sertraline HCl [Zoloft] 100 mg PO BID 02/12/18 Tizanidine HCl 2 mg PO HS 02/12/18 Acetaminophen [Tylenol .Regular Strength -] 650 mg PO Q6H PRN #30 tablet Docusate Sodium [Colace -] 100 mg PO BID #14 capsule 02/18/18 Atorvastatin Ca [Lipitor] 10 mg PO HS 02/19/18 Ferrous Sulfate [Feosol] 325 mg PO DAILY 02/19/18 Hypromellose 0.5% Opth Soln [Artificial Tears] 1 - 2 drop BID PRN 02/19/18 Multivitamin [Daily Multiple Vitamin] 1 each PO 02/19/18 Zolpidem Tartrate 10 mg PO HS 02/19/18 This patient is new to me today: No Emergency Visit: No Critical Care patient: No - Discharge Referral Referred to [facility] No
== END 2018-02-22 17:37 | disposition home or self-care (01) | DRG 460 ==
LOC: JSAMEDAYSX 07:52 → JICU 20:44 → J8W 02-17 09:45
PROVIDERS: ADMIT Orthopaedic Surgery Orthopaedic Surgery of the Spine; ATTEND Internal Medicine
PROC: 0SG3071 Fusion of Lumbosacral Joint with Autologous Tissue Substitute, Posterior Approach, Posterior Column, Open Approach (ICD-10-PCS; 2018-02-15)
PROC: 0QB00ZZ Excision of Lumbar Vertebra, Open Approach (ICD-10-PCS; 2018-02-15)
PROC: 0SG0071 Fusion of Lumbar Vertebral Joint with Autologous Tissue Substitute, Posterior Approach, Posterior Column, Open Approach (ICD-10-PCS; principal; 2018-02-15 11:00)
DX: M48.061 Spinal stenosis, lumbar region without neurogenic claudication (principal); G97.61 Postprocedural hematoma of a nervous system organ or structure following a nervous system procedure; G97.82 Other postprocedural complications and disorders of nervous system; G96.0 Cerebrospinal fluid leak; G97.41 Accidental puncture or laceration of dura during a procedure; E11.9 Type 2 diabetes mellitus without complications; E66.9 Obesity, unspecified; Z68.34 Body mass index [BMI] 34.0-34.9, adult; D64.9 Anemia, unspecified; R50.82 Postprocedural fever; D72.829 Elevated white blood cell count, unspecified; I95.9 Hypotension, unspecified; R51 Headache; R11.0 Nausea; F32.9 Major depressive disorder, single episode, unspecified; Y83.9 Surgical procedure, unspecified as the cause of abnormal reaction of the patient, or of later complication, without mention of misadventure at the time of the procedure
CPT/HCPCS: 36415; 71045-TC-FY; 76000-TC-FY; 80048; 80053; 81003; 82728; 82962; 83540; 83550; 83735; 84100; 84703; 85025; 85027; 86850; 86900; 86901; 87040; 88304-TC; 94760; 97116-GP; 97161-GP; J0131; J1644; J1756; J7030

== ENCOUNTER 2019-11-11 06:09 | Day surgery (SDC) | payer BC, OTHER ==
[2019-10-27 16:51] VITALS: BMI 25.7
[2019-11-11] MEDS ORDERED: VANCOMYCIN 1,000 MG in DEXTROSE 5%-WATER - 250 ML IVPB ONE (09:15)
[2019-11-11] MEDS ORDERED: CEFAZOLIN 1 GM/D5W 1 GM/50 ML BAG IVPB ONE (09:15)
[2019-11-11] MEDS ORDERED: MIDAZOLAM HCL 2 MG/2 ML SINGLE DOSE VIAL ONE ×2 (09:30→10:08)
[2019-11-11] MEDS ORDERED: ROPIVACAINE HCL 0.5% 30ML VIAL ONE (09:30)
[2019-11-11] MEDS ORDERED: SUCCINYLCHOLINE CHLORIDE 200 MG/10 ML SYRINGE ONE (10:07)
[2019-11-11] MEDS ORDERED: PROPOFOL 20 ML ONE ×4 (10:07→10:18)
[2019-11-11] MEDS ORDERED: ONDANSETRON 4 MG/2 ML VIAL ONE (11:06)
[2019-11-11] MEDS ORDERED: DEXAMETHASONE SOD PHOSPHATE 4 MG/1 ML VIAL ONE (11:06)
[2019-11-11] MEDS ORDERED: ceFAZolin SODIUM 1 GM VIAL ONE (11:06)
--- NOTE | 2019-11-11 12:03 | OP ---
Operative Note - Note: Operative Date: 11/11/19 Pre-Operative Diagnosis: Left shoulder rotator cuff impingement syndrome Operation: 1. Left shoulder open NEER decompression. 2. Excisional arthroplasty of clavicle, transection of coracoacromial ligament. 3. Acromioplasty. Post-Operative Diagnosis: Same as Pre-op Surgeon: Danilo Claire Mobile Application Engineer: Kwadwo Herbert Anesthesiologist/DESKTOP MANAGER: Alannah Pelayo Anesthesia: MAC Estimated Blood Loss (mls): 30 Fluid Volume Replaced (mls): 800 Operative Report Dictated: Yes
--- NOTE | 2019-11-11 12:04 | SURG ---
Surgery Orthotist/Prosthetist Note Orthotist/Prosthetist: Kwadwo Herbert PA-C Date of Service: 11/11/19 Diagnosis: Left shoulder rotator cuff impingement syndrome Procedure: 1. Left shoulder open NEER decompression. 2. Excisional arthroplasty of clavicle, transection of coracoacromial ligament. 3. Acromioplasty. I was present for the entirety of the operative procedure. For further detail, please refer to operative report. Visit type - Case Type Case Type: Scheduled - New patient This patient is new to me today: Yes Date on this admission: 11/11/19
[2019-11-11] MEDS ORDERED: ONDANSETRON 4 MG/2 ML VIAL IVPUSH PRN (12:24)
[2019-11-11] MEDS ORDERED: oxyCODONE HCL 5 MG TABLET PO PRN (12:24)
[2019-11-11] MEDS ORDERED: ACETAMINOPHEN 1000 MG/100 ML VIAL (NON FORMULARY) IVPB ONE (12:24)
[2019-11-11] MEDS ORDERED: LACTATED RINGERS SOLUTION 1,000 ML IV SCH (12:30)
[2019-11-11 13:02] VITALS: BP 110/74; PULSE 73; TEMP 98.2
--- NOTE | 2019-11-11 13:18 | OP ---
DATE OF OPERATION: DATE OF DICTATION: 11/11/2019 SURGEON: Danilo Claire MD DIRECTOR TELEMETRY: ANTONINO Figueroa PREOPERATIVE DIAGNOSIS: Left rotator cuff impingement syndrome. POSTOPERATIVE DIAGNOSIS: Left rotator cuff impingement syndrome. OPERATION PERFORMED: 1. Lissett excision arthroplasty, left clavicle. 2. Acromioplasty. 3. Transection of coracoacromial ligament. 4. Inspection of rotator cuff. No visible tear. ANESTHESIA: Conscious sedation with scalene block. ANTIBIOTICS GIVEN: 2 g of Ancef. DESCRIPTION OF PROCEDURE: Patient correctly identified. Brought to the operating room. Left upper extremity was prepped, draped in the routine manner with Betadine scrub solution, wiped off with alcohol, DuraPrep applied. Patient placed in Alejandro position on a shoulder frame. A time-out was called. Imaging was available for intraoperative evaluation. The incision was made from the tip of the acromion to the coracoid in the lines of [place]. The skin, subcutaneous tissues were opened to the deltoid. The clavicle was identified by digitally palpating the clavicle. A superior surface of the clavicle was denuded of soft tissue using a unipolar Bovie. Sharp Hohmann placed both from the posterior and the anterior aspect of the distal clavicle to lift the clavicle and a beveled excision arthroplasty measuring 1 cm performed. This was an excision of the distal end of the clavicle appropriately. This enabled easy access to the coracoacromial ligament. Using a peanut, the underlying tissues of the deltoid were freed off the actual ligament. The ligament was not transected but incised. This freed the arch of the coracoacromial ligament. The deltoid was left well alone and was not touched. Once this had been performed, with digital palpation, the subacromial space was opened completely. A blunt Hohmann was placed on the undersurface of the acromion. Sharp beak of the anteromedial aspect of the acromion noted. An appropriate acromioplasty performed using an oscillating saw just as it was done with the clavicle resection. A good 1/2 cm bone was resected in thickness. This completely opened up the subacromial space. The bursa was inflamed and thickened; however, manipulating between the tissues of the bursa after a thorough lavage and dissection and removal of some of the bursa, the rotator cuff was visualized and found to be completely intact from front to back. This was left well alone. The operation performed was a typical Neer decompression with excision arthroplasty of the clavicle, acromioplasty, associated CA ligament resection. The tissues were closed deltoid muscle 1 Vicryl, subcutaneous 1-0 and 2-0 Vicryl, skin 3-0 Monocryl with Steri-Strips. No drainage utilized. Operation went extremely well. No complications. MD CHARLIE Dela Cruz/[id number]
== END 2019-11-11 13:07 | disposition home or self-care (01) ==
LOC: FASU 06:09
PROVIDERS: ATTEND Orthopaedic Surgery Orthopaedic Surgery of the Spine
PROC: 0MN20ZZ Release Left Shoulder Bursa and Ligament, Open Approach (ICD-10-PCS; 2019-11-11)
PROC: 0PBB0ZZ Excision of Left Clavicle, Open Approach (ICD-10-PCS; principal; 2019-11-11 10:53)
DX: M75.42 Impingement syndrome of left shoulder (principal)
CPT/HCPCS: 82962; 94760

== ENCOUNTER 2020-08-06 04:43 | Inpatient (IN) | payer BC, OTHER ==
--- OUTSIDE RECORDS SUMMARY | 2020-07-23 11:59 | XMS ---
:1965 Author Organization [facility] Support Name Relationship Address Phone UE Unavailable Unavailable Unavailable LANETTE DOMINGUEZ BROTHER [address] [place] [address] Re-disclosure Warning The records that you are about to access may contain information from federally- assisted alcohol or drug abuse programs. If such information is present, then the following federally mandated warning applies: This information has been disclosed to you from records protected by federal confidentiality rules (42 CFR part 2). The federal rules prohibit you from making any further disclosure of this information unless further disclosure is expressly permitted by the written consent of the person to whom it pertains or as otherwise permitted by 42 CFR part 2. A general authorization for the release of medical or other information is NOT sufficient for this purpose. The Federal rules restrict any use of the information to criminally investigate or prosecute any alcohol or drug abuse patient.The records that you are about to access may contain highly sensitive health information, the redisclosure of which is protected by Article 27-F of the [facility] Public Health law. If you continue you may haveaccess to information: Regarding HIV / AIDS; Provided by facilities licensed or operated by the [facility] Office of Mental Health; or Provided by the [facility] Office for People With Developmental Disabilities. If such information is present, then the following [facility] mandated warning applies: This information has been disclosed to you from confidential records which are protected by state law. State law prohibits you from making any further disclosure of this information without the specific written consent of the person to whom it pertains, or as otherwise permitted by law. Any unauthorized further disclosure in violation of state law may result in a fine or residential sentence or both. A general authorization for the release of medical or other information is NOT sufficient authorization for further disclosure. Insurance Providers Payer name Policy type Policy ID Covered Covered republican's Policy P mikala / Coverage republican ID relationship to Prajapati Inf ormation type prajapati MEDICAID [id number] SP [id number] MEDICARE [id number] A BLUE CROSS [id number] [facility] [id number]
[2020-08-03 08:33] VITALS: BMI 27.4
--- OUTSIDE RECORDS SUMMARY | 2020-08-06 04:46 | XMS ---
:1965 Author Organization [facility] Support Name Relationship Address Phone UE, UNEMPLOYED Unavailable Unavailable Unavailable RODNEY MORALES SON [address] [place] [address] UE Unavailable Unavailable Unavailable LANETTE DOMINGUEZ BROTHER [address] [place] [address] Re-disclosure Warning The records that you are [...] is protected by Article 27-F of the [facility] Public Health law. If you continue you may haveaccess to information: Regarding HIV / AIDS; Provided by facilities licensed or operated by the [facility] Office of Mental Health; or Provided by the [facility] Office for People With Developmental Disabilities. If such information is present, then the following [facility] mandated warning applies: This information has been [...] law may result in a fine or detention sentence or both. A general authorization for the release of medical or other information is NOT sufficient authorization for further disclosure. Insurance Providers Payer name Policy type Policy ID Covered Covered green party's Policy P mikala / Coverage green party ID relationship to Prajapati Inf ormation type prajapati MEDICAID [id number] SP [id number] BLUE CROSS [id number] SP [id number] [facility] [address] MEDICARE [id number] SP [id number] A
[2020-08-06] MEDS ORDERED: fentaNYL CITRATE 250 MCG/5 ML VIAL ONE ×2 (07:22→10:08)
[2020-08-06] MEDS ORDERED: MIDAZOLAM HCL 2 MG/2 ML SINGLE DOSE VIAL ONE ×2 (07:23)
[2020-08-06] MEDS ORDERED: PROPOFOL 20 ML ONE ×13 (07:23→11:01)
[2020-08-06] MEDS ORDERED: SUCCINYLCHOLINE CHLORIDE 200 MG/10 ML SYRINGE ONE (07:23)
[2020-08-06] MEDS ORDERED: THROMBIN (BOVINE) 20,000 UNIT VIAL TP ONE (07:26)
[2020-08-06] MEDS ORDERED: HEPARIN NA (PORCINE) 5,000 UNITS/ML 1ML VIAL ONE (07:26)
[2020-08-06] MEDS ORDERED: SODIUM CHLORIDE 0.9% P/F 10 ML VIAL IJ ONE (07:32)
[2020-08-06] MEDS ORDERED: VANCOMYCIN 1,000 MG VIAL (RESTRICTED TO ID ONLY) ONE (07:32)
[2020-08-06] MEDS ORDERED: TRANEXAMIC ACID 1000 MG/10 ML VIAL ONE (07:32)
[2020-08-06] MEDS ORDERED: ceFAZolin SODIUM 1 GM VIAL ONE ×2 (07:32→10:42)
[2020-08-06] MEDS ORDERED: ceFAZolin 2 GRAM PREMIX BAG IVPB ONE (08:10)
[2020-08-06] MEDS ORDERED: VANCOMYCIN 1,000 MG VIAL (RESTRICTED TO ID ONLY) IVPB ONE (08:15)
[2020-08-06] MEDS ORDERED: HYDROmorphone HCl 2 MG/ML VIAL ONE ×2 (08:27→14:56)
[2020-08-06] MEDS ORDERED: GENTAMICIN SO4 80 MG/2 ML VIAL ONE (08:58)
[2020-08-06] MEDS ORDERED: THROMBIN (BOVINE) 5,000 UNIT VIAL TP ONE ×2 (09:09)
[2020-08-06] MEDS ORDERED: BUPIVACAINE LIPOSOME/PF (EXPAREL) 266 MG/20 ML VIAL ONE (09:18)
[2020-08-06] MEDS ORDERED: morphine SULFATE/PF 0.5 MG/ML (2cc Syringe - QUVA) ONE (10:17)
[2020-08-06] MEDS ORDERED: ePHEDrine SULFATE 50 MG/1 ML AMPULE ONE (10:33)
[2020-08-06] MEDS ORDERED: PHENYLEPHRINE HCL 10 MG/1 ML SINGLE DOSE VIAL ONE (10:35)
[2020-08-06] MEDS ORDERED: ceFAZolin SODIUM 1 GM VIAL IVPB ONE (10:45)
[2020-08-06] MEDS ORDERED: BUPIVACAINE LIPOSOME/PF (EXPAREL) 266 MG/20 ML VIAL NR ONE (11:14)
[2020-08-06] MEDS ORDERED: BUPIVACAINE HCL/PF 0.5% (5 MG/ML) 30 ML VIAL IJ ONE (11:15)
[2020-08-06] MEDS ORDERED: diazePAM CARPU-JECT 10 MG/2 ML DISP.SYRIN IVPUSH PRN (12:17)
[2020-08-06] MEDS ORDERED: ONDANSETRON 4 MG/2 ML VIAL IVPUSH PRN ×3 (12:17→12:31)
[2020-08-06] MEDS ORDERED: ACETAMINOPHEN 1000 MG/100 ML VIAL (NON FORMULARY) IVPB PRN (12:17)
[2020-08-06] MEDS ORDERED: LACTATED RINGERS SOLUTION 1,000 ML IV SCH ×2 (12:30→12:45)
[2020-08-06] MEDS ORDERED: oxyCODONE HCL 5 MG TABLET PO PRN (12:31)
[2020-08-06] MEDS ORDERED: NALOXONE HCL 0.4 MG/ML VIAL IVPUSH PRN (12:31)
[2020-08-06] MEDS ORDERED: morphine SULFATE/PF 0.5 MG/ML (2cc Syringe - QUVA) IT ONE (12:31)
[2020-08-06] MEDS ORDERED: diazePAM CARPU-JECT 10 MG/2 ML DISP.SYRIN ONE ×2 (12:44→13:14)
[2020-08-06] MEDS: ACETAMINOPHEN 325 MG TABLET (FP) PO SCH ×2 (13:15→18:46)
[2020-08-06] MEDS ORDERED: ACETAMINOPHEN INJECTION 100 ML IVPB ONE (13:15)
--- NOTE | 2020-08-06 14:41 | OP ---
DATE OF OPERATION: 08/06/2020 SURGEON: Danilo Claire MD CO-SURGEON: Yousuf Glez MD, neurosurgeon PREOPERATIVE DIAGNOSIS: Recurrent spinal stenosis L4-5-S1. POSTOPERATIVE DIAGNOSIS: Recurrent spinal stenosis L4-5-S1. OPERATION PERFORMED: 1. L2 revision bilateral laminectomies and facetectomies. () 2. L3 revision bilateral laminectomies and facetectomies. () 3. L4 revision bilateral laminectomies and facetectomies. () 4. L5 revision bilateral laminectomies and facetectomies. () 5. S1 revision bilateral laminectomies and facetectomies. () 6. L2 bilateral posterior osteotomies. () 7. L3 bilateral posterior osteotomies. () 8. L4 bilateral posterior osteotomies. () 9. L5 bilateral posterior osteotomies. () 10. S1 bilateral posterior osteotomies. () 11. L2-L3 posterior/lateral arthrodesis, bilateral. () 12. L3-L4 posterior/lateral arthrodesis, bilateral. () 13. L4-L5 posterior/lateral arthrodesis, bilateral. () 14. L5-S1 posterior/lateral arthrodesis, bilateral. () 15. L3-S1 posterior instrumentation; 4 vertebral segments. () 16. Morselized bone autograft. () 17. Morselized bone allograft. () 18. Bone marrow aspiration for bone grafting. ([id number]) 19. Complex wound closure, 4 layers, 20cm. ([id number] x 3) 20. Fluoroscopy. ([id number]) 21. Durotomy repair. ([id number]) Separate statement and Dr. Meek as co-surgeon will dictate a note on the L2 to S1 revision laminectomy and associated incidental dural tear and myofascial dural patch repair. ANESTHESIA: General. ANTIBIOTICS: Two g Ancef, 1 g vancomycin preop; 1 g Kefzol given at the time of instrumentation. OPERATION DETAILS: The patient correctly identified, brought in the operating room. Lumbar spine was prepped and draped in the routine manner with Betadine scrub solution, wiped off with alcohol, DuraPrep applied. Timeout was called. Indication is the patient has a recurrent stenosis at L4-5-S1 from previous multiple surgeries. The indication for this operation was for the revision, freeing of the thecal sac because of bone reactive tissue clearly noted on the CAT scan, myelogram and fitting with the symptoms of radiculopathy involving L4-5-S1 as well as the neural elements and then the S2-3-4. The skin was prepped and draped in the routine manner with Betadine scrub solution, wiped off with alcohol, DuraPrep applied. Midline incision was utilized. The skin was opened. Subcutaneous tissues developed, brought down to the tip of the spinous process of L1. The dissection was taken down to the lamina. An oblique incision was then made into the muscle mass extending out to the hardware. The cross-clamp was identified and the soft tissue dissected off the actual combination bone bed as well as hardware. Using osteotomes and rongeurs all the bone was cleared off the previous instrumentation. The instrumentation was removed with no difficulty. The fusion mass was inspected, found to be solid, but as could be seen on the CT scan this appeared to be flimsy and would be subject to repeat fracture and pseudoarthrosis if left alone. At that point Dr. Meek with me assisting went ahead and did a full laminectomy. This was revision laminectomy from L2, 3, 4, 5 and S1. An incidental durotomy occurred which he will report on and the appropriate myofascial patch. All of these factors will be dictated on by Dr. Meek. From my point, the instrumentation was repeated with pedicle screws seated from L2, 3, 4, 5, S1 left and right-hand side. The rods were applied. The caps were tightly seated with the torque device with solid fixation achieved. Bone grafting with a combination of autologous bone graft harvested from the same wound as well as a combination of bone marrow aspirate concentration harvested from the left posterior ilium spun down for the CD34 cells and mixed with expanded allograft. The tissues were hard and a complex wound closure was necessary. This measured 20 cm. This was in 4 layers; muscle 1 Vicryl, fascia 1 Vicryl, subcutaneous 1 and 2-0 Vicryl and skin eun. Drainage 1/8-inch Hemovac brought out subcutaneously. MD CHARLIE Dela Cruz/[id number] MTDD
[2020-08-06] MEDS ORDERED: CEFAZOLIN 1 GM/D5W 1 GM/50 ML BAG IVPB SCH (15:00)
[2020-08-06] MEDS: CEFAZOLIN 1 GM/D5W 1 GM/50 ML BAG IVPB SCH ×2 (17:40→22:27)
--- NOTE | 2020-08-06 17:51 | CONSULT ---
Consultation: REQUESTING PROVIDER: Dr. Claire CONSULT REQUEST: We have been asked to medically evaluate this patient for postoperative ICU admission. HISTORY OF PRESENT ILLNESS: Patient is a 54 year old female with history of spinal stenosis, diabetes mellitus, depression presented for lumbar spinal surgery. Patient underwent removal of previous instrumentation and hardware L4-L5-S1, with revision of instrumentation at L2 - S1, revision posterior lateral arthrodesis. Postoperatively, patient reports minimal pain. Denies subjective fevers, chills, shortness of breath, chest pain, palpitations, abdominal pain, nausea, vomiting. Medical history: spinal stenosis, diabetes mellitus, depression Surgical history: left rotator cuff surgery, L1- S1 laminectomy, Family history: -Mother: diabetes mellitus -Father: diabetes mellitus, ?metastatic cancer Social: has not worked in over 25 years due to disability. formerly worked at [employer] in [place], [place]. Ambulates with cane, can walk approx one block at baseline. REVIEW OF SYSTEMS: CONSTITUTIONAL: Absent: fever, chills, diaphoresis, generalized weakness, malaise, loss of appetite, weight change HEENT: Absent: rhinorrhea, nasal congestion, throat pain, throat swelling, difficulty swallowing, mouth swelling, ear pain, eye pain, visual changes CARDIOVASCULAR: Absent: chest pain, syncope, palpitations, irregular heart rate, lightheadedness, peripheral edema RESPIRATORY: Absent: cough, shortness of breath, dyspnea with exertion, orthopnea, wheezing, stridor, hemoptysis GASTROINTESTINAL: Absent: abdominal pain, abdominal distension, nausea, vomiting, diarrhea, constipation, melena, hematochezia GENITOURINARY: Absent: dysuria, frequency, urgency, hesitancy, hematuria, flank pain, genital pain MUSCULOSKELETAL: Admits: back pain. Absent: myalgia, arthralgia, joint swelling, neck pain SKIN: Absent: rash, itching, pallor HEMATOLOGIC/IMMUNOLOGIC: Absent: easy bleeding, easy bruising, lymphadenopathy, frequent infections ENDOCRINE: Absent: unexplained weight gain, unexplained weight loss, heat intolerance, cold intolerance NEUROLOGIC: Absent: headache, focal weakness or paresthesias, dizziness, unsteady gait, seizure, mental status changes, bladder or bowel incontinence PSYCHIATRIC: Absent: anxiety, depression, suicidal or homicidal ideation, hallucinations. PHYSICAL EXAMINATION Vital Signs - 24 hr 11/02/20 11/02/20 11/02/20 06:46 06:55 12:17 Temperature 98.2 F 97.5 F L Pulse Rate 78 88 Respiratory 20 14 Rate Blood Pressure 110/68 173/81 H O2 Sat by Pulse 100 100 95 Oximetry (%) 08/06/20 08/06/20 08/06/20 12:30 12:45 13:00 Temperature Pulse Rate 82 68 61 Respiratory 14 16 14 Rate Blood Pressure 159/79 143/61 123/66 O2 Sat by Pulse 99 99 98 Oximetry (%) 08/06/20 08/06/20 08/06/20 13:15 13:30 13:45 Temperature Pulse Rate 64 60 64 Respiratory 12 14 14 Rate Blood Pressure 110/60 96/46 L 112/60 O2 Sat by Pulse 98 99 99 Oximetry (%) 08/06/20 08/06/20 08/06/20 14:00 14:30 15:00 Temperature Pulse Rate 62 72 64 Respiratory 14 14 16 Rate Blood Pressure 113/62 120/60 122/62 O2 Sat by Pulse 98 99 99 Oximetry (%) 08/06/20 08/06/20 08/06/20 15:30 16:00 16:15 Temperature 98.8 F Pulse Rate 70 62 62 Respiratory 16 16 16 Rate Blood Pressure 119/63 97/52 L 100/50 L O2 Sat by Pulse 98 98 100 Oximetry (%) 08/06/20 16:17 Temperature Pulse Rate 60 Respiratory 16 Rate Blood Pressure 103/56 L O2 Sat by Pulse 100 Oximetry (%) GENERAL: The patient is awake, alert, and fully oriented, in no acute distress. HEAD: Normocephalic, atraumatic. EYES: PERRL, extraocular movements intact, sclera anicteric, conjunctiva clear. ENT: Oropharynx clear, without erythema or exudates. Moist mucous membranes. NECK: Trachea midline, full range of motion. Supple without lymphadenopathy. LUNGS: Breath sounds equal, clear to auscultation bilaterally. No wheezes, no crackles. No accessory muscle use. HEART: Regular rate and rhythm. S1, S2 without murmur, rub or gallop. ABDOMEN: Soft, nondistended, nontender to light and deep palpation x4 quadrants. No rebound tenderness, no guarding. Normoactive bowel sounds x4 quadrants. No hepatosplenomegaly, no masses appreciated. EXTREMITIES: 2+ radial, dorsalis pedis pulses bilaterally. Warm, well-perfused. No lower extremity edema bilaterally. NEUROLOGICAL: Cranial nerves II through XII grossly intact. Normal speech. No gross focal deficits. PSYCH: Normal mood, normal affect upon my encounter. SKIN: Warm, dry. Laboratory Results - last 24 hr 08/06/20 08/06/20 06:10 07:02 POC Glucometer 92 Blood Type B POSITIVE Antibody Screen Negative Crossmatch IS Only See Detail Active Medications Generic Name Dose Route Start Last Admin Trade Name Freq PRN Reason Stop Dose Admin Acetaminophen 1,000 mg 08/06/20 12:17 08/06/20 13:21 Ofirmev Injection - IVPB 1,000 mg Q8H PRN Administration If narcotics are ineffective Acetaminophen 650 mg 08/06/20 12:45 08/06/20 13:15 Tylenol - PO Not Given Q6H MILA Diazepam 5 mg 08/06/20 12:17 08/06/20 13:20 Valium Injection - IVPUSH 5 mg Q6H PRN Administration MUSCLE SPASMS Diphenhydramine HCl 25 mg 08/06/20 12:31 Benadryl Injection - IVPUSH ONCE PRN FOR ITCHING Fentanyl 50 mcg 08/06/20 12:31 08/06/20 12:50 Sublimaze Injection - IVPUSH 50 mcg [id number] PRN Administration PAIN-PACU ORDER X 4 DOSES ONLY Hydromorphone HCl 2 mg 08/06/20 12:17 Dilaudid Vial - SQ Q6H PRN PAIN LEVEL 6-10 Lactated Ringer's 1,000 mls @ 125 mls/hr 08/06/20 12:30 08/06/20 17:29 Lactated Ringers Solution IV 125 mls/hr ASDIR MILA Administration Cefazolin Sodium 1 gm in 50 mls @ 100 mls/hr 08/06/20 17:00 08/06/20 17:40 Ancef 1 Gm Premixed Ivpb - IVPB 08/07/20 05:29 100 mls/hr Q6H MILA Administration Naloxone HCl 0.4 mg 08/06/20 12:31 Narcan - IVPUSH ONCE PRN Sedation Ondansetron HCl 4 mg 08/06/20 12:17 Zofran Injection IVPUSH Q6H PRN NAUSEA AND/OR VOMITING Ondansetron HCl 4 mg 08/06/20 12:31 Zofran Injection IVPUSH ONCE PRN NAUSEA Oxycodone HCl 10 mg 08/07/20 12:32 Oxycontin - PO BID MILA Oxycodone HCl 5 mg 08/06/20 12:31 Roxicodone - PO Q3H PRN Mild Pain 1-3 Oxycodone HCl 10 mg 08/06/20 12:31 Roxicodone - PO Q3H PRN Moderate Pain 4-6 ASSESSMENT/PLAN: Patient is a 54 year old female with history of spinal stenosis, diabetes mellitus, depression admitted s/p removal of previous instrumentation and hardware L4-L5-S1, with revision of instrumentation at L2 - S1, revision posterior lateral arthrodesis. Neurologic -Patient is awake, alert, fully oriented -Monitor for signs of mental status changes Cardiovascular -Normotensive, BP at goal. -Cardiac telemetry montoring while in ICU Pulmonary -Patient saturating well, currently on 2L nasal canula -Incentive spirometer Gastrointestinal -NPO until passing flatus -Monitor intake, output Musculoskeletal -POD #0 s/p removal of previous instrumentation and hardware L4-L5-S1, with revision of instrumentation at L2 - S1, revision posterior lateral arthrodesis. -Acetaminophen, Dilaudid, Oxycodone for pain control, per orthopedic surgery -Follow drain output -Physical therapy -Orthopedic surgery recommendations (Dr. Claire) appreciated. Infectious disease -Cefazolin x3 doses posteperatively per orthopedic surgery Endocrine -History of diabetes mellitus -HgbA1c -Insulin sliding scale, fingerstick BGM TID FEN -IV Lactated Ringer's at 125mL. hour -Follow BMP -NPO Prophylaxis -SCDs bilateral lower extremities Disposition We will continue to follow the patient. Thank you for this consultative opportunity. Visit type - Emergency Visit Emergency Visit: No - New Patient This patient is new to me today: Yes Date on this admission: 08/06/20 - Critical Care Critical Care patient: Yes Total Critical Care Time (in minutes): 36 Critical Care Statement: The care of this patient involved high complexity decision making to prevent further life threatening deterioration of the patient's condition and/or to evaluate & treat vital organ system(s) failure or risk of failure. ATTENDING PHYSICIAN STATEMENT I saw and evaluated the patient. I reviewed the resident's note and discussed the case with the resident. I agree with the resident's findings and plan as documented. SUBJECTIVE: OBJECTIVE: ASSESSMENT AND PLAN:
[2020-08-06] MEDS: HYDROmorphone HCl 2 MG/ML VIAL SQ PRN (18:47)
[2020-08-06] MEDS: INSULIN SLIDING SCALE (NOVOLOG) 1 VIAL SQ SCH (18:54)
--- NOTE | 2020-08-06 19:22 | OP ---
Operative Note - Note: Operative Date: 08/06/20 Pre-Operative Diagnosis: Spinal Stenosis L2/3/4/5/S1 Operation: L2 to S1 revision laminectomy. Revision L2 to S1 Posterolateral Instrumented Arthrodesis Implants: Car spine Surgeon: Danilo Claire Veneer Press Operator: Yousuf Glez Anesthesia: General Estimated Blood Loss (mls): 600 Drains & Tubes with Location: 19F Hemovac Blood Volume Replaced (mls): 300 Operative Report Dictated: Yes
[2020-08-06] MEDS: oxyCODONE HCL 5 MG TABLET PO PRN (20:05)
[2020-08-06] MEDS ORDERED: ATORVASTATIN CA 10 MG TABLET (FP) PO SCH (22:00)
[2020-08-06] MEDS: GABAPENTIN 300 MG CAPSULE PO SCH (22:00)
[2020-08-06] MEDS: TIZANIDINE HCL 2 MG TABLET PO SCH (22:00)
[2020-08-07] MEDS: ACETAMINOPHEN 325 MG TABLET (FP) PO SCH ×2 (02:45→08:22)
[2020-08-07] MEDS: oxyCODONE HCL 5 MG TABLET PO PRN ×2 (02:45→08:06)
[2020-08-07] MEDS: HYDROmorphone HCl 2 MG/ML VIAL SQ PRN ×2 (04:13→13:27)
[2020-08-07] MEDS: CEFAZOLIN 1 GM/D5W 1 GM/50 ML BAG IVPB SCH (04:13)
[2020-08-07] MEDS: GABAPENTIN 300 MG CAPSULE PO SCH ×2 (05:58→13:03)
[2020-08-07 06:18] LABS: HEMATOCRIT 33.5 % (32.4-45.2); HEMOGLOBIN 10.7 GM/dL (10.7-15.3); MCH 27.2 pg (25.7-33.7); MCHC 32.1 g/dl (32.0-36.0); MEAN CELL VOLUME 84.7 fl (80-96); MEAN PLT VOLUME 8.9 fl (7.5-11.1); PLATELET COUNT 204 K/MM3 (134-434); RBC 3.96 M/mm3 (3.60-5.2); RDW 14.3 % (11.6-15.6); WHITE BLOOD COUNT 8.7 K/mm3 (4.0-10.0)
[2020-08-07 06:42] LABS: POTASSIUM 3.7 mmol/L (3.5-5.1)
[2020-08-07 06:45] LABS: BLOOD UREA NITROGEN 6.5 mg/dL (7-18); CALCIUM 8.5 mg/dL (8.5-10.1)
[2020-08-07 06:48] LABS: CREATININE 0.6 mg/dL (0.55-1.3)
[2020-08-07] MEDS: INSULIN SLIDING SCALE (NOVOLOG) 1 VIAL SQ SCH ×2 (08:23→11:29)
[2020-08-07] MEDS ORDERED: PT OWN MED DRAWER 7, Y5N ONE (09:04)
[2020-08-07] MEDS: TIZANIDINE HCL 2 MG TABLET PO SCH (09:08)
[2020-08-07 09:12] VITALS: BP 120/70
[2020-08-07 11:09] VITALS: PULSE 97; TEMP 98.6
[2020-08-07] MEDS ORDERED: oxyCODONE HCL 10 MG SUSTAINED ACTING TABLET PO SCH (12:32)
--- NOTE | 2020-08-07 13:13 | DS ---
Physical Exam: SUBJECTIVE: Patient seen and examined at bedside in ICU. No acute events overnight. Patient is anxious to go home. OBJECTIVE: Vital Signs Period Temp Pulse Resp BP Sys/Zacarias Pulse Ox Last 24 Hr 98.3 F-98.8 F 57-99 12-16 96-122/46-87 93-100 PHYSICAL EXAM GENERAL: AAOx3, NAD HEAD: NCAT EYES: PERRL, extraocular movements intact, sclera anicteric, conjunctiva clear. ENT: Oropharynx clear, without erythema or exudates. MMM NECK: Trachea midline, full range of motion. Supple without lymphadenopathy. LUNGS: CTAB. No wheezes, no crackles. No accessory muscle use. HEART: RRR. S1, S2 without murmur, rub or gallop. ABDOMEN: Soft, NDNT. No rebound tenderness, no guarding. Normoactive bowel sounds. No hepatosplenomegaly, no masses appreciated. EXTREMITIES: 2+ radial, dorsalis pedis pulses bilaterally. Warm, well-perfused. No lower extremity edema bilaterally. dressing in low back. NEUROLOGICAL: Cranial nerves II through XII grossly intact. Normal speech. No gross focal deficits. PSYCH: Normal mood, normal affect upon my encounter. SKIN: Warm, dry. LABS Laboratory Results - last 24 hr 08/06/20 08/07/20 08/07/20 06:10 05:15 05:15 WBC 8.7 RBC 3.96 Hgb 10.7 Hct 33.5 D MCV 84.7 MCH 27.2 MCHC 32.1 RDW 14.3 Plt Count 204 D MPV 8.9 D Sodium 142 Potassium 3.7 Chloride 111 H Carbon Dioxide 25 Anion Gap 6 L BUN 6.5 L Creatinine 0.6 Est GFR (CKD-EPI)AfAm 119.77 Est GFR (CKD-EPI)NonAf 103.34 POC Glucometer Random Glucose 81 Hemoglobin A1c % Calcium 8.5 Blood Type B POSITIVE Antibody Screen Negative Crossmatch IS Only See Detail 08/07/20 08/07/20 08/07/20 05:15 05:49 11:28 WBC RBC Hgb Hct MCV MCH MCHC RDW Plt Count MPV Sodium Potassium Chloride Carbon Dioxide Anion Gap BUN Creatinine Est GFR (CKD-EPI)AfAm Est GFR (CKD-EPI)NonAf POC Glucometer 90 175 Random Glucose Hemoglobin A1c % 5.2 Calcium Blood Type Antibody Screen Crossmatch IS Only HOSPITAL COURSE: 54 year old female with history of spinal stenosis, diabetes mellitus, de pression presented for lumbar spinal surgery. Patient underwent removal of previous instrumentation and hardware L4-L5-S1, with revision of instrumentation at L2 - S1, revision posterior lateral arthrodesis with Dr. Claire. Postoperatively, patient reported minimal pain. Denied subjective fevers, chills, shortness of breath, chest pain, palpitations, abdominal pain, nausea, vomiting. Post op ICU course was unremarkable and patient was discharged the next morning by Dr. Claire. Date of Admission:08/06/20 08/07/20-Lumbar Spine XR-posterior LS spine fusion as described above. Date of Discharge: 08/07/20 Minutes to complete discharge: 36 Discharge Summary Problems reviewed: Yes Reason For Visit: RADICULOPATHY, LUMBAR REGION Condition: Stable - Instructions Diet, Activity, Other Instructions: Your visit: You were admitted to the hospital for surgery. Medications changes: -Dr. Claire will send you pain medications. -Continue to take all other home medications as prescribed. Follow up: - Please follow-up with your orthopedic surgeon, Dr. Claire in 1 week. - Visit with your Primary Care Provider in 2 weeks. If you do not have a primary care provider you may make an appointment with Dr. Velázquez at the [facility] clinic located at [address] [place] [address] ([phone]). Additional Instructions: -You are being discharged to your home. -Please return to the Emergency Department if you experience worsening pain, fevers, chills, shortness of breath, or chest pain, or if you experience any worsening, new or concerning symptoms. Referrals: Leander Johnson MD [Staff Physician] - 1 Week Danilo Claire MD [Staff Physician] - 1 Week Disposition: VNS/HOME HEALTH CARE - Home Medications Comprehensive Discharge Medication List: Ambulatory Orders Gabapentin [Neurontin] 600 mg PO TID 02/12/18 Tizanidine HCl 2 mg PO BID 02/12/18 metFORMIN HCL [Metformin HCl] 500 mg PO PRN 02/12/18 Atorvastatin Ca [Lipitor] 10 mg PO HS 02/19/18 Multivitamin [Daily Multiple Vitamin] 1 each PO DAILY 02/19/18 Aspirin [Aspirin EC] 81 mg PO DAILY 08/03/20 Cholecalciferol (Vitamin D3) [Vitamin D3] 2,000 unit PO DAILY 08/03/20 Oxycodone HCl [Oxycodone HCl ER] 30 mg PO TID 08/03/20 Carboxymethylcellulose Sodium [Refresh Plus] 2 bottle OD PRN 08/06/20 Pantoprazole Sodium 40 mg PO DAILY 08/06/20 This patient is new to me today: No Emergency Visit: No Critical Care patient: Yes Total Critical Care Time (in minutes): 36 Critical Care Statement: The care of this patient involved high complexity decision making to prevent further life threatening deterioration of the patient's condition and/or to evaluate & treat vital organ system(s) failure or risk of failure. - Discharge Referral Referred to [facility] No ATTENDING PHYSICIAN STATEMENT I saw and evaluated the patient. I reviewed the resident's note and discussed the case with the resident. I agree with the resident's findings and plan as documented. SUBJECTIVE: OBJECTIVE: ASSESSMENT AND PLAN:
--- NOTE | 2020-08-07 13:37 | PN ---
Progress Note (short form) - Note Progress Note: POD#1 In ICU Feels well All original pain gone Walking in the hallway independently No headache Wants to go home Apyrexial All vitals stable Neuro LE fully intact motor and sensory Wound Bandage dressing dry Drainage in Hemovac minimal Drain pulled Assess Doing remarkably well PLAN D/C home Pain management to be arranged from my office see in 2c weeks for wound care Mobilize FWBAT Activity modification explained
--- NOTE | 2020-08-07 18:10 | PATH ---
Surgical Pathology Report Patient Name: FRANK MORALES [facility]. Rec. #: [id number] /Age/Gender: 1965 (Age: 54) / F Account: [id number] Location: [facility] MEDICARE BILLER Taken: 08/06/2020 Received: 08/06/2020 Reported: 08/07/2020 Physicians: Danilo Claire M.D. Specimen(s) Received REMOVED HARDWARE L4-S1 Clinical History Radiculopathy, lumbar region Final Diagnosis REMOVED HARDWARE, L4-S1, REMOVAL: SURGICAL HARDWARE. MACROSCOPIC DIAGNOSIS. Electronically Signed [place] M.D. Gross Description Received fresh labeled "removed hardware L4-S1" are multiple metal pedicle screws, curved rods, and nuts (10) ranging in size from 5.5-13 cm in length. Nuts measure 0.7 cm in diameter. No soft tissue identified, for gross examination only. MLSZ/08/06/2020 san/08/06/2020
--- NOTE | 2020-08-07 22:18 | PN ---
Teaching Attending Note Name of Resident: Priyank Gamino ATTENDING PHYSICIAN STATEMENT I saw and evaluated the patient. I reviewed the resident's note and discussed the case with the resident. I agree with the resident's findings and plan as documented. SUBJECTIVE: 54 M, spinal stenosis, diabetes mellitus, and depression. Admitted due lumbar spinal surgery. She previously underwent removal of previous instrumentation and hardware L4-L5-S1. POD#1: revision of instrumentation at L2 - S1, revision posterior lateral arthrodesis. Report pain is adequately controlled. Denies shortness of breath or chest pain. Intake & Output 08/05/20 08/05/20 08/06/20 08/07/20 00:59 23:59 23:59 23:59 Intake Total 2500 1700 Output Total 1900 1000 Balance 600 700 Weight 160 lb Last Vital Signs Temp Pulse Resp BP Pulse Ox 98.6 F 97 H 12 120/70 100 08/07/20 10:00 08/07/20 10:00 08/07/20 10:00 08/07/20 10:00 08/07/20 10:27 Medical history: spinal stenosis, diabetes mellitus, depression Surgical history: left rotator cuff surgery, L1- S1 laminectomy, Family history: -Mother: diabetes mellitus -Father: diabetes mellitus, ?metastatic cancer Social: has not worked in over 25 years due to disability. formerly worked at [employer] in [place], [place]. Ambulates with cane, can walk approx one block at baseline. REVIEW OF SYSTEMS: CONSTITUTIONAL: Absent: fever, chills, diaphoresis, generalized weakness, malaise, loss of appetite, weight change HEENT: Absent: rhinorrhea, nasal congestion, throat pain, throat swelling, difficulty swallowing, mouth swelling, ear pain, eye pain, visual changes CARDIOVASCULAR: Absent: chest pain, syncope, palpitations, irregular heart rate, lightheadedness, peripheral edema RESPIRATORY: Absent: cough, shortness of breath, dyspnea with exertion, orthopnea, wheezing, stridor, hemoptysis GASTROINTESTINAL: Absent: abdominal pain, abdominal distension, nausea, vomiting, diarrhea, constipation, melena, hematochezia GENITOURINARY: Absent: dysuria, frequency, urgency, hesitancy, hematuria, flank pain, genital pain MUSCULOSKELETAL: Admits: back pain. Absent: myalgia, arthralgia, joint swelling, neck pain SKIN: Absent: rash, itching, pallor HEMATOLOGIC/IMMUNOLOGIC: Absent: easy bleeding, easy bruising, lymphadenopathy, frequent infections ENDOCRINE: Absent: unexplained weight gain, unexplained weight loss, heat intolerance, cold intolerance NEUROLOGIC: Absent: headache, focal weakness or paresthesias, dizziness, unsteady gait, seizure, mental status changes, bladder or bowel incontinence PSYCHIATRIC: Absent: anxiety, depression, suicidal or homicidal ideation, hallucinations. PHYSICAL EXAMINATION Laboratory Results - last 24 hr 08/06/20 08/07/20 08/07/20 06:10 05:15 05:15 WBC 8.7 RBC 3.96 Hgb 10.7 Hct 33.5 D MCV 84.7 MCH 27.2 MCHC 32.1 RDW 14.3 Plt Count 204 D MPV 8.9 D Sodium 142 Potassium 3.7 Chloride 111 H Carbon Dioxide 25 Anion Gap 6 L BUN 6.5 L Creatinine 0.6 Est GFR (CKD-EPI)AfAm 119.77 Est GFR (CKD-EPI)NonAf 103.34 POC Glucometer Random Glucose 81 Hemoglobin A1c % Calcium 8.5 Blood Type B POSITIVE Antibody Screen Negative Crossmatch IS Only See Detail 08/07/20 08/07/20 08/07/20 05:15 05:49 11:28 WBC RBC Hgb Hct MCV MCH MCHC RDW Plt Count MPV Sodium Potassium Chloride Carbon Dioxide Anion Gap BUN Creatinine Est GFR (CKD-EPI)AfAm Est GFR (CKD-EPI)NonAf POC Glucometer 90 175 Random Glucose Hemoglobin A1c % 5.2 Calcium Blood Type Antibody Screen Crossmatch IS Only GENERAL: Awake, alert, and oriented, in no acute distress. HEAD: Normal with no signs of trauma. EYES: sclera anicteric, conjunctiva clear. No lid lag. EARS, NOSE, THROAT: Ears normal, nares patent, oropharynx clear without exudates. Moist mucous membranes. NECK: Normal range of motion, supple without lymphadenopathy, JVD, or masses. LUNGS: clear to auscultation bilaterally. No wheezes, and no crackles. No accessory muscle use. HEART: Regular rate and rhythm, normal S1 and S2 without murmur, rub or gallop. ABDOMEN: Soft, nontender, not distended, normoactive bowel sounds, no guarding, no rebound, no masses. No hepatomegaly or splenomegaly. MUSCULOSKELETAL: Normal range of motion at all joints. No bony deformities or tenderness. No CVA tenderness. UPPER EXTREMITIES: 2+ pulses, warm, well-perfused. No cyanosis. No clubbing. Cap refill <2 seconds. No peripheral edema. LOWER EXTREMITIES: 2+ pulses, warm, well-perfused. No calf tenderness. No peripheral edema. NEUROLOGICAL: Non-focal PSYCHIATRIC: Cooperative. Good eye contact. Appropriate mood and affect. SKIN: Warm, dry, normal turgor, no rashes or lesions noted. Laboratory Results - last 24 hr 08/06/20 08/07/20 08/07/20 06:10 05:15 05:15 WBC 8.7 RBC 3.96 Hgb 10.7 Hct 33.5 D MCV 84.7 MCH 27.2 MCHC 32.1 RDW 14.3 Plt Count 204 D MPV 8.9 D Sodium 142 Potassium 3.7 Chloride 111 H Carbon Dioxide 25 Anion Gap 6 L BUN 6.5 L Creatinine 0.6 Est GFR (CKD-EPI)AfAm 119.77 Est GFR (CKD-EPI)NonAf 103.34 POC Glucometer Random Glucose 81 Hemoglobin A1c % Calcium 8.5 Blood Type B POSITIVE Antibody Screen Negative Crossmatch IS Only See Detail 08/07/20 08/07/20 08/07/20 05:15 05:49 11:28 WBC RBC Hgb Hct MCV MCH MCHC RDW Plt Count MPV Sodium Potassium Chloride Carbon Dioxide Anion Gap BUN Creatinine Est GFR (CKD-EPI)AfAm Est GFR (CKD-EPI)NonAf POC Glucometer 90 175 Random Glucose Hemoglobin A1c % 5.2 Calcium Blood Type Antibody Screen Crossmatch IS Only ASSESSMENT/PLAN: POD #1: removal of previous instrumentation and hardware L4-L5-S1, with revision of instrumentation at L2 - S1, revision posterior lateral arthrodesis. Spinal Stenosis HPL DM Pain control Incentive Spirometry PO as tolerated VTE prophylaxis Activity & DC Planning per Surgery Dr Luciano
== END 2020-08-07 14:26 | disposition home health service (06) | DRG 460 ==
LOC: J2C 04:43 → JICU 16:40
PROVIDERS: ADMIT Orthopaedic Surgery Orthopaedic Surgery of the Spine; ATTEND Orthopaedic Surgery Orthopaedic Surgery of the Spine
PROC: 0SG1071 Fusion of 2 or more Lumbar Vertebral Joints with Autologous Tissue Substitute, Posterior Approach, Posterior Column, Open Approach (ICD-10-PCS; 2020-08-06)
PROC: 0SG3071 Fusion of Lumbosacral Joint with Autologous Tissue Substitute, Posterior Approach, Posterior Column, Open Approach (ICD-10-PCS; 2020-08-06)
PROC: 0SP304Z Removal of Internal Fixation Device from Lumbosacral Joint, Open Approach (ICD-10-PCS; 2020-08-06)
PROC: 0QW004Z Revision of Internal Fixation Device in Lumbar Vertebra, Open Approach (ICD-10-PCS; 2020-08-06)
PROC: 00QT0ZZ Repair Spinal Meninges, Open Approach (ICD-10-PCS; 2020-08-06)
PROC: 0HX6XZZ Transfer Back Skin, External Approach (ICD-10-PCS; 2020-08-06)
PROC: 07DR0ZZ Extraction of Iliac Bone Marrow, Open Approach (ICD-10-PCS; 2020-08-06)
PROC: B01BZZZ Fluoroscopy of Spinal Cord (ICD-10-PCS; 2020-08-06)
PROC: 4A11X4G Monitoring of Peripheral Nervous Electrical Activity, Intraoperative, External Approach (ICD-10-PCS; 2020-08-06)
PROC: 0SP004Z Removal of Internal Fixation Device from Lumbar Vertebral Joint, Open Approach (ICD-10-PCS; principal; 2020-08-06 08:00)
DX: M47.26 Other spondylosis with radiculopathy, lumbar region (principal); G97.41 Accidental puncture or laceration of dura during a procedure; M48.07 Spinal stenosis, lumbosacral region; M48.061 Spinal stenosis, lumbar region without neurogenic claudication; Y83.8 Other surgical procedures as the cause of abnormal reaction of the patient, or of later complication, without mention of misadventure at the time of the procedure; K21.9 Gastro-esophageal reflux disease without esophagitis
CPT/HCPCS: 36415; 72100-TC-FY; 80048; 82962; 83036; 85027; 86891; 86922; 88300-TC; 94760; 97116-GP; 97161-GP; J0131; J1644

== ENCOUNTER 2022-01-22 14:14 | Day surgery (SDC) | payer BC, OTHER ==
[2022-01-13 13:08] VITALS: BMI 26.6
[2022-01-22 11:59] LABS: HEMATOCRIT 42.3 % (32.4-45.2); HEMOGLOBIN 14.2 G/dL (10.7-15.3); MCH 28.2 pg (25.7-33.7); MCHC 33.5 g/dl (32.0-36.0); MEAN PLT VOLUME 7.9 fl (7.5-11.1); PLATELET COUNT 200.4 10^3/uL (134-434); RBC 5.03 10^6/uL (3.60-5.2); RDW 16.6 % (11.6-15.6)
[2022-01-22 12:07] LABS: ALBUMIN 3.3 g/dl (3.4-5.0); BILIRUBIN,TOTAL 0.4 mg/dl (0.2-1); CALCIUM 8.8 mg/dl (8.5-10); CREATININE 0.8 mg/dl (0.55-1.3)
[2022-01-22] MEDS: TRANEXAMIC ACID 1000 MG/10 ML VIAL IVPUSH ONE ×2 (12:50→13:25)
[2022-01-22] MEDS: oxyCODONE HCL 10 MG SUSTAINED ACTING TABLET PO SCH ×2 (14:00→19:56)
[~2022-01-22 14:14] MED LIST: ARTIFICIAL TEARS (POLYVINYL ALCOHOL) OPTH DROPS OD SCH; BUPIVACAINE HCL/PF 0.5% (5 MG/ML) 30 ML VIAL IJ ONE; BUPIVACAINE HCL/PF 2.5 MG/ML - 30 ML VIAL IJ ONE; CEFAZOLIN 2 GM in DEXTROSE 5%-WATER - 50 ML IVPB ONE; KETAMINE HCL 200 MG/20 ML VIAL ONE; LACTATED RINGERS SOLUTION 1,000 ML IV SCH; MAG HYDROX/AL HYDROX/SIMETH 30 ML UNIT-DOSE CUP PO PRN; MAGNESIUM HYDROX 2400MG/30ML ORAL SUSPENSION 30 ML CUP PO PRN; MIDAZOLAM HCL 2 MG/2 ML SINGLE DOSE VIAL ONE; ONDANSETRON 4 MG/2 ML VIAL IVPUSH PRN; ONDANSETRON 4 MG/2 ML VIAL ONE; PATIENT'S OWN MEDICATION (NON-FORMULARY) (Carboxymethylcellulose Sodium [Refresh Plus] 1 E OD SCH; PATIENT'S OWN MEDICATION (NON-FORMULARY) (Gabapentin [Neurontin] 600 MG Tablet) PO SCH; PROPOFOL 20 ML ONE; TRANEXAMIC ACID 1000 MG/10 ML VIAL IVPUSH ONE; TRANEXAMIC ACID 1000 MG/10 ML VIAL ONE; oxyCODONE HCL 20 MG SUSTAINED ACTING TABLET PO SCH; oxyCODONE HCL 5 MG TABLET PO PRN
[2022-01-22] MEDS: GABAPENTIN 300 MG CAPSULE PO SCH ×2 (14:17→22:16)
[2022-01-22] MEDS ORDERED: oxyCODONE HCL 5 MG TABLET PO PRN (14:26)
[2022-01-22] MEDS ORDERED: DEXTROSE 5%-WATER - 50 ML IVPB ONE ×2 (16:26→22:01)
[2022-01-22] MEDS ORDERED: ceFAZolin SODIUM 1 GM VIAL ONE ×2 (16:26→22:01)
[2022-01-22] MEDS: INSULIN (NOVOLOG) ASPART 100 UNITS/ML 10ML VIAL SQ SCH ×2 (16:28→22:17)
[2022-01-22] MEDS: CEFAZOLIN 2 GM in DEXTROSE 5%-WATER - 50 ML IVPB SCH ×2 (16:28→22:14)
[2022-01-22] MEDS ORDERED: HYDROmorphone HCL/PF 1 MG/ML VIAL IVPB ONE (18:00)
[2022-01-22] MEDS ORDERED: TIZANIDINE HCL 2 MG TABLET PO SCH (22:00)
[2022-01-22] MEDS ORDERED: PATIENT'S OWN MEDICATION (NON-FORMULARY) (Sertraline Hcl [Zoloft] 100 MG Tablet) PO SCH (22:00)
[2022-01-22] MEDS ORDERED: QUEtiapine FUMARATE 50 MG TABLET PO SCH (22:00)
[2022-01-22] MEDS: ASPIRIN 81 MG CHEWABLE TABLETS PO SCH (22:15)
[2022-01-22] MEDS: CELECOXIB 200 MG CAPSULE PO SCH (22:16)
[2022-01-22] MEDS: ATORVASTATIN CA 10 MG TABLET (FP) PO SCH (22:16)
[2022-01-22] MEDS: SENNOSIDES/DOCUSATE COMBO (SENNA PLUS) TABLET (UD) PO SCH (22:17)
[2022-01-22] MEDS: SERTRALINE HCL 50 MG TABLET (FP) PO SCH (22:18)
[2022-01-22] MEDS: QUEtiapine FUMARATE 25 MG TABLET PO SCH (22:18)
[2022-01-23] MEDS: CEFAZOLIN 2 GM in DEXTROSE 5%-WATER - 50 ML IVPB SCH (03:11)
[2022-01-23] MEDS: oxyCODONE HCL 10 MG SUSTAINED ACTING TABLET PO SCH ×2 (03:11→12:54)
[2022-01-23] MEDS: GABAPENTIN 300 MG CAPSULE PO SCH ×3 (06:09→21:37)
[2022-01-23] MEDS: metFORMIN HCL 500 MG TABLET (FP) PO SCH (06:11)
[2022-01-23] MEDS: INSULIN (NOVOLOG) ASPART 100 UNITS/ML 10ML VIAL SQ SCH ×4 (06:12→22:04)
[2022-01-23 07:50] LABS: CALCIUM 8.8 mg/dl (8.5-10); CREATININE 0.7 mg/dl (0.55-1.3)
[2022-01-23 07:57] LABS: HEMOGLOBIN 11.8 G/dL (10.7-15.3); MCH 27.6 pg (25.7-33.7); MCHC 32.8 g/dl (32.0-36.0); MEAN CELL VOLUME 84.2 fl (80-96); MEAN PLT VOLUME 7.9 fl (7.5-11.1); PLATELET COUNT 192.1 10^3/uL (134-434); RBC 4.27 10^6/uL (3.60-5.2); RDW 15.8 % (11.6-15.6)
[2022-01-23] MEDS: CELECOXIB 200 MG CAPSULE PO SCH ×2 (10:05→21:38)
[2022-01-23] MEDS: SENNOSIDES/DOCUSATE COMBO (SENNA PLUS) TABLET (UD) PO SCH ×2 (10:05→21:38)
[2022-01-23] MEDS: ASPIRIN 81 MG CHEWABLE TABLETS PO SCH ×2 (10:06→21:38)
[2022-01-23] MEDS: PANTOPRAZOLE 40 MG TABLET PO SCH (10:06)
[2022-01-23] MEDS: POTASSIUM CHLORIDE TABS 20 MEQ TABLET.ER (FP) PO SCH ×2 (10:17→17:22)
[2022-01-23] MEDS ORDERED: SODIUM CHLORIDE 1,000 ML IV STA ×2 (12:33→13:47)
[2022-01-23 14:27] LABS: HEMATOCRIT 32.8 % (32.4-45.2); HEMOGLOBIN 10.9 G/dL (10.7-15.3); MCH 28.2 pg (25.7-33.7); MCHC 33.2 g/dl (32.0-36.0); MEAN PLT VOLUME 7.6 fl (7.5-11.1); PLATELET COUNT 173.3 10^3/uL (134-434); RBC 3.86 10^6/uL (3.60-5.2); RDW 15.8 % (11.6-15.6); WHITE BLOOD COUNT 9.2 10^3/uL (4.0-10.8)
[2022-01-23 14:46] LABS: ALBUMIN 2.6 g/dl (3.4-5.0); BILIRUBIN,TOTAL 0.6 mg/dl (0.2-1); CALCIUM 8.1 mg/dl (8.5-10); CREATININE 0.6 mg/dl (0.55-1.3); MAGNESIUM 1.5 mg/dL (1.8-2.4); TOT PROT 5.2 g/dl (6.4-8.2)
[2022-01-23] MEDS: TIZANIDINE HCL 2 MG TABLET PO SCH (15:18)
[2022-01-23] MEDS: oxyCODONE HCL 5 MG TABLET PO PRN (18:34)
[2022-01-23] MEDS ORDERED: FUROSEMIDE 40 MG/4 ML INJECTABLE VIAL IVPUSH ONE (20:44)
[2022-01-23] MEDS ORDERED: MAGNESIUM SULF 50% (8.12 MEQ/2 ML-1 GM VIAL) IVPB ONE (20:49)
[2022-01-23] MEDS: QUEtiapine FUMARATE 25 MG TABLET PO SCH (21:37)
[2022-01-23] MEDS: ATORVASTATIN CA 10 MG TABLET (FP) PO SCH (21:37)
[2022-01-23] MEDS: SERTRALINE HCL 50 MG TABLET (FP) PO SCH (21:39)
[2022-01-24] MEDS ORDERED: MAGNESIUM SULF 50% (8.12 MEQ/2 ML-1 GM VIAL) ONE (06:48)
[2022-01-24] MEDS: metFORMIN HCL 500 MG TABLET (FP) PO SCH (06:59)
[2022-01-24] MEDS: GABAPENTIN 300 MG CAPSULE PO SCH (07:00)
[2022-01-24] MEDS: oxyCODONE HCL 10 MG SUSTAINED ACTING TABLET PO SCH ×2 (07:13→11:17)
[2022-01-24] MEDS: INSULIN (NOVOLOG) ASPART 100 UNITS/ML 10ML VIAL SQ SCH ×2 (07:18→11:15)
[2022-01-24 07:57] LABS: ALBUMIN 3.1 g/dl (3.4-5.0); BILIRUBIN,TOTAL 1.5 mg/dl (0.2-1); CALCIUM 8.8 mg/dl (8.5-10); CREATININE 0.6 mg/dl (0.55-1.3); HEMATOCRIT 42.4 % (32.4-45.2); HEMOGLOBIN 14.2 G/dL (10.7-15.3); MAGNESIUM 1.6 mg/dL (1.8-2.4); MCH 28.7 pg (25.7-33.7); MCHC 33.4 g/dl (32.0-36.0); MEAN PLT VOLUME 8.1 fl (7.5-11.1); PLATELET COUNT 202.3 10^3/uL (134-434); RBC 4.93 10^6/uL (3.60-5.2); RDW 15.5 % (11.6-15.6); TOT PROT 6.1 g/dl (6.4-8.2); WHITE BLOOD COUNT 11.9 10^3/uL (4.0-10.8)
[2022-01-24] MEDS: ASPIRIN 81 MG CHEWABLE TABLETS PO SCH (09:15)
[2022-01-24] MEDS: CELECOXIB 200 MG CAPSULE PO SCH (09:16)
[2022-01-24] MEDS: oxyCODONE HCL 5 MG TABLET PO PRN (09:16)
[2022-01-24] MEDS: SENNOSIDES/DOCUSATE COMBO (SENNA PLUS) TABLET (UD) PO SCH (09:16)
[2022-01-24] MEDS: PANTOPRAZOLE 40 MG TABLET PO SCH (09:16)
[2022-01-24 12:05] VITALS: BP 100/49; PULSE 80; TEMP 99
[2022-01-26] MEDS ORDERED: ERGOCALCIFEROL (VIT D2) 50,000 UNIT (1.25 MG) CAPSULE PO SCH (10:00)
== END 2022-01-24 14:03 | disposition home or self-care (01) ==
LOC: FASUSAT 14:14 → FM/S 14:14 → FASUSAT 01-24 14:03
PROVIDERS: ATTEND Orthopaedic Surgery Orthopaedic Surgery of the Spine
PROC: 0SRB0JA Replacement of Left Hip Joint with Synthetic Substitute, Uncemented, Open Approach (ICD-10-PCS; principal; 2022-01-22 09:00)
DX: M16.12 Unilateral primary osteoarthritis, left hip (principal)
CPT/HCPCS: 27130; C1776; 36415; 36430; 73502-TC-LT-FY; 80048; 80053; 82962; 83735; 85025; 85027; 86850; 86900; 86901; 86922; 88304-TC; 88311-TC; 94760; 97010-GP; 97116-GP; 97162-GP; P9058